=== PATIENT | male | born 1960 | race Caucasian/White ===

== ENCOUNTER 2021-01-26 04:05 | Emergency (ER) | payer MEDICARE, MEDICAID, SELFPAY ==
--- NOTE | ~2021-01-26 | CT_ITS ---
EXAMINATION: CT ABDOMEN AND PELVIS WITHOUT CONTRAST CLINICAL INFORMATION: Right-sided abdominal pain COMPARISON: 02/16/2020 TECHNIQUE: Multidetector volumetric imaging was performed from the superior aspect of the liver through the pubic symphysis. Sagittal and coronal reformatted images were obtained on the technologist's workstation. This CT examination was performed using dose optimization techniques as appropriate, variously including the following: *Automated exposure control *Adjustment of mA and/or kV according to patient size (this includes techniques or standardized protocols for targeted exams where dose is matched to indication/reason for exam; i.e. extremities or head) *Use of iterative reconstruction technique DLP: 1185 mGy-cm FINDINGS: LUNG BASES: The visualized lung bases are unremarkable. LIVER, GALLBLADDER, AND BILIARY TREE: Liver normal in size, contour and morphology. There is mild diffuse hepatic steatosis. No focal liver lesions. No intra or extrahepatic biliary. Gallbladder unremarkable. PANCREAS: Unremarkable. SPLEEN: Unremarkable. ADRENAL GLANDS: Unremarkable. KIDNEYS AND URETERS: The kidneys are normal in size, shape, and attenuation. No hydronephrosis, hydroureter, or calculi seen. No perinephric stranding. BLADDER: Unremarkable. GASTROINTESTINAL TRACT: The small and large bowel are unremarkable. The appendix is unremarkable. ABDOMINAL WALL: No significant hernia is appreciated. LYMPH NODES: Normal. VASCULAR: Aorta is atherosclerotic but normal caliber. PELVIC VISCERA: Unremarkable. OSSEOUS STRUCTURES: No acute or suspicious osseous abnormalities. Endplate ossified present throughout the thoracic and lumbar spine. Posterior decompression of the L3, L4. CT/CT abdomen pelvis wo con IMPRESSION: No acute findings within the abdomen or pelvis to explain the patient's symptomatology. Chronic findings as above.
--- NOTE | 2021-01-26 04:17 | ED.BACK ---
HPI - Back Pain/Injury General Chief Complaint: Back Pain/Injury Stated Complaint: Back pain Time Seen by Provider: 01/26/21 04:17 Source: patient Mode of arrival: ambulatory History of Present Illness HPI Narrative: 60-year-old male with chronic back pain, being seen by pain management presents with right mid back pain radiating into his right gluteus and right leg without bowel or bladder dysfunction or noted numbness/tingling/weakness. Patient denies any fever, chills, nausea, vomiting, diarrhea. Patient states that he gets back injections at pain management but he is unable to bear the pain currently. Related Data Previous Rx's Medication Instructions Recorded cyclobenzaprine 10 mg PO BEDTIME PRN #3 tab 01/26/21 ketorolac 10 mg PO Q6H PRN 5 Days #20 tab 01/26/21 Allergies Allergy/AdvReac Type Severity Reaction Status Date / Time Surgical Tape Allergy Unknown rash, Uncoded 01/26/21 04:31 itching Review of Systems Review of Systems: Pertinent positives and negatives as stated in HPI 10 point review of systems is otherwise negative. PMFSH Past Medical History Source: nursing notes reviewed Medical History Back pain Obesity Surgical History H/O shoulder surgery History of submandibular gland removal Previous back surgery Social History Social History Advance Directives: No Advance Directives Information Provided: No Physical Exam Vital Signs: Vital Signs: Last Vital Signs Temp 98.5 F 01/26/21 04:20 Pulse 68 01/26/21 04:20 Resp 20 01/26/21 04:20 BP 173/93 H 01/26/21 04:20 Pulse Ox 97 01/26/21 04:20 Body Mass Index 40.7 VITAL SIGNS: Reviewed. GENERAL: Well developed, well nourished, in no acute distress. HEAD: Normocephalic/atraumatic EYES: PERRLA, EOMI OROPHARYNX: no oral lesions noted, posterior pharynx clear NECK: Supple, no adenopathy LUNGS: Normal breath sounds. No adventitious sounds or accessory muscle use. SpO2<97> CARDIOVASCULAR: Regular rate and rhythm without noted murmurs, no JVD or lower extremity edema, femoral/popliteal/pedal pulses are symmetrical and palpable. ABDOMEN: Soft, non-tender, non-distended with bowel sounds. Exam limited by body habitus SKIN: Inspection of the skin reveals no rashes NEUROLOGIC: Alert and oriented x 4. Strength and sensation to light touch were grossly intact x 4. Course Course Course Narrative: This is a 60-year-old male with history and clinical presentation consistent with chronic back pain, low clinical suspicion for acute neurologic etiology but will rule out UTI/renal colic. Review of all investigations negative for acute findings that would better explain patient's presentation other than acute on chronic lower back pain. On re-evaluation after having given the patient's combination analgesics with Flexeril and lidocaine patch there is some improvement although patient remains somewhat dubious. He was reassured and given the overall results and instructed to follow-up with his primary care provider in an effort to expedite re-evaluation by the pain management provider. MDM - Back Pain/Injury Lab Data Result diagrams: 01/26/21 04:54 01/26/21 04:54 Labs: Lab Results 01/26/21 01/26/21 01/26/21 Range/Units 04:54 04:54 04:54 WBC 7.2 (4.8-10.8) X10*3/uL RBC 4.61 (4.60-5.80) X10*6/uL Hgb 15.7 (14.0-18.0) g/dl Hct 46.0 (42-52) % MCV 99.8 H (80-98) fL MCH 34.1 H (27.0-33.0) pg MCHC 34.1 (31.0-36.0) g/dl RDW 13.0 (11.0-16.0) % Plt Count 235 (160-400) X10*3/uL MPV 9.4 (9.4-12.4) fL Immature Gran % (Auto) 0.7 H (0.0-0.4) % Neut % (Auto) 54.6 (45-73) % Lymph % (Auto) 27.6 (20-40) % Mckenzie % (Auto) 12.2 H (2-11) % Eos % (Auto) 3.5 (0-4) % Baso % (Auto) 1.4 (0-2) % Lymph # (Auto) 2.0 (1.2-4.9) X10*3/uL Mckenzie # (Auto) 0.9 (0.1-1.2) X10*3/uL Eos # (Auto) 0.3 (0.0-0.4) X10*3/uL Baso # (Auto) 0.1 (0.0-0.2) X10*3/uL Abs Immat Gran (auto) 0.05 H (0.00-0.03) X10*3/uL Absolute Neuts (auto) 3.9 (2.0-8.3) X10*3/uL Absolute Nucleated RBC 0.000 (0.0-0.012) X10*3/uL Nucleated RBC % (auto) 0.0 (0.0-0.2) /100WBC PT 12.3 (10.8-13.0) SEC INR 1.0 (0.9-1.1) Sodium 142 (135-145) mmol/L Potassium 4.5 (3.3-5.1) mmol/L Chloride 107 (96-108) mmol/L Carbon Dioxide 29 (22-29) mmol/L Anion Gap 11 L (12-20) BUN 23 H (9-16) mg/dL Creatinine 0.76 (0.5-1.4) mg/dL Estim Creat Clear Calc 143.5 Estimated GFR > 60 Random Glucose 118 H (60-115) mg/dL Calcium 9.1 (8.4-10.2) mg/dL Total Bilirubin 0.5 (0.0-1.0) mg/dL AST 17 (5-37) U/L ALT 30 (0-40) U/L Alkaline Phosphatase 63 (39-117) U/L Total Protein 6.4 L (6.5-8.0) g/dL Albumin 4.2 (3.5-5.0) g/dL Urine Color Urine Appearance Urine pH (5.0-8.0) Ur Specific [place] (1.005-1.025) Urine Protein (NEG-TRACE) MG/DL Urine Glucose (UA) (NEG) MG/DL Urine Ketones (NEG) MG/DL Urine Blood (NEG) Urine Nitrite (NEG) Ur Leukocyte Esterase (NEG) Urine Opiates Screen (Not Detect) Ur Barbiturates Screen (Not Detect) Ur Phencyclidine Scrn (Not Detect) Ur Amphetamines Screen (Not Detect) U Benzodiazepines Scrn (Not Detect) Urine Cocaine Screen (Not Detect) U Marijuana (THC) Screen (Not Detect) 01/26/21 01/26/21 Range/Units 06:01 06:01 WBC (4.8-10.8) X10*3/uL RBC (4.60-5.80) X10*6/uL Hgb (14.0-18.0) g/dl Hct (42-52) % MCV (80-98) fL MCH (27.0-33.0) pg MCHC (31.0-36.0) g/dl RDW (11.0-16.0) % Plt Count (160-400) X10*3/uL MPV (9.4-12.4) fL Immature Gran % (Auto) (0.0-0.4) % Neut % (Auto) (45-73) % Lymph % (Auto) (20-40) % Mckenzie % (Auto) (2-11) % Eos % (Auto) (0-4) % Baso % (Auto) (0-2) % Lymph # (Auto) (1.2-4.9) X10*3/uL Mckenzie # (Auto) (0.1-1.2) X10*3/uL Eos # (Auto) (0.0-0.4) X10*3/uL Baso # (Auto) (0.0-0.2) X10*3/uL Abs Immat Gran (auto) (0.00-0.03) X10*3/uL Absolute Neuts (auto) (2.0-8.3) X10*3/uL Absolute Nucleated RBC (0.0-0.012) X10*3/uL Nucleated RBC % (auto) (0.0-0.2) /100WBC PT (10.8-13.0) SEC INR (0.9-1.1) Sodium (135-145) mmol/L Potassium (3.3-5.1) mmol/L Chloride (96-108) mmol/L Carbon Dioxide (22-29) mmol/L Anion Gap (12-20) BUN (9-16) mg/dL Creatinine (0.5-1.4) mg/dL Estim Creat Clear Calc Estimated GFR Random Glucose (60-115) mg/dL Calcium (8.4-10.2) mg/dL Total Bilirubin (0.0-1.0) mg/dL AST (5-37) U/L ALT (0-40) U/L Alkaline Phosphatase (39-117) U/L Total Protein (6.5-8.0) g/dL Albumin (3.5-5.0) g/dL Urine Color YELLOW Urine Appearance CLEAR Urine pH 6.0 (5.0-8.0) Ur Specific [place] >= 1.030 H (1.005-1.025) Urine Protein NEG (NEG-TRACE) MG/DL Urine Glucose (UA) NEG (NEG) MG/DL Urine Ketones NEG (NEG) MG/DL Urine Blood NEG (NEG) Urine Nitrite NEG (NEG) Ur Leukocyte Esterase NEG (NEG) Urine Opiates Screen Not Detected (Not Detect) Ur Barbiturates Screen Not Detected (Not Detect) Ur Phencyclidine Scrn Not Detected (Not Detect) Ur Amphetamines Screen Not Detected (Not Detect) U Benzodiazepines Scrn Not Detected (Not Detect) Urine Cocaine Screen Not Detected (Not Detect) U Marijuana (THC) Screen POSITIVE H (Not Detect) Discharge Plan Discharge Clinical Impression: Back pain, Muscle spasm Patient Disposition: Home, Self-Care Instructions: Muscle Spasm (ED), Back Pain (ED) Additional Instructions: 1. Tylenol 1000 mg, orally, every 6 hours as needed for pain control. Do not exceed 4000 mg within 24 hours. 2. Lidocaine patch, these are available [id number] and should be apply to the area of maximal pain as directed on the outside packaging. 3. Follow-up with your primary care provider today to set up an appointment for re-evaluation and further discussion on long-term management of your back pain. Return to the ER for any acute worsening of symptoms. Prescriptions: New ketorolac 10 mg tablet 10 mg PO Q6H PRN (Reason: pain) 5 Days Qty: 20 RF: 0 cyclobenzaprine 10 mg tablet 10 mg PO BEDTIME PRN (Reason: muscle spasm) Qty: 3 RF: 0 Referrals: Lucio Banda MD [Primary Care Provider] - 2 days (Re-evaluation after seen and evaluated in the emergency room for back pain. Workup for alternative etiologies other than acute on chronic pain were negative.)
[2021-01-26 04:20] VITALS: BP 173/93; PULSE 68; RESP 20; TEMP 36.9; O2SAT 97; BMI 40.7
[2021-01-26 04:59] LABS: Basophils Absolute Auto 0.1 X10*3/uL (0.0-0.2); Basophils Percent Auto 1.4 % (0-2); Eosinophils Absolute Auto 0.3 X10*3/uL (0.0-0.4); Eosinophils Percent Auto 3.5 % (0-4); Hemoglobin 15.7 g/dl (14.0-18.0); Imm Gran Abs Auto 0.05 X10*3/uL (0.00-0.03); Imm Gran Pct Auto 0.7 % (0.0-0.4); Lymphocytes Percent Auto 27.6 % (20-40); MANUAL DIFF FLAG NO; Mean Corpuscular HGB Conc 34.1 g/dl (31.0-36.0); Mean Corpuscular Hemoglobin 34.1 pg (27.0-33.0); Mean Corpuscular Volume 99.8 fL (80-98); Mean Platelet Volume 9.4 fL (9.4-12.4); Monocytes Absolute Auto 0.9 X10*3/uL (0.1-1.2); Monocytes Percent Auto 12.2 % (2-11); Neutrophils Absolute Auto 3.9 X10*3/uL (2.0-8.3); Neutrophils Percent Auto 54.6 % (45-73); Platelet Count 235 X10*3/uL (160-400); Red Blood Count 4.61 X10*6/uL (4.60-5.80); White Blood Count 7.2 X10*3/uL (4.8-10.8)
[2021-01-26] MEDS: Lidocaine 4 % Patch ADH..PATCH 1 PATCH TRANSDERMA (05:01)
[2021-01-26] MEDS: Acetaminophen 325 MG TABLET 975 MG PO (05:01)
[2021-01-26] MEDS: Ketorolac Tromethamine 15 MG/ML VIAL IVPUSH (05:01)
[2021-01-26] MEDS: Cyclobenzaprine HCl 10 MG TABLET PO (05:01)
[2021-01-26 05:06] LABS: Prothrombin Time 12.3 SEC (10.8-13.0)
[2021-01-26 05:29] LABS: Alanine Aminotransferase 30 U/L (0-40); Albumin Level 4.2 g/dL (3.5-5.0); Alkaline Phosphatase 63 U/L (39-117); Anion Gap 11 (12-20); Aspartate Amino Transferase 17 U/L (5-37); Bilirubin Total 0.5 mg/dL (0.0-1.0); Blood Urea Nitrogen 23 mg/dL (9-16); Calcium 9.1 mg/dL (8.4-10.2); Carbon Dioxide 29 mmol/L (22-29); Chloride 107 mmol/L (96-108); Creatinine Clr Calc Pharmacy 143.5; Estimated Glomerular Filt Rate > 60; Glucose Random 118 mg/dL (60-115); Potassium 4.5 mmol/L (3.3-5.1); Sodium 142 mmol/L (135-145); Total Protein 6.4 g/dL (6.5-8.0)
[2021-01-26 06:09] LABS: Glucose Urine UA NEG (NEG); Leukocyte Esterase Urine NEG (NEG); Nitrite Urine NEG (NEG); Specific Gravity - Urine >= 1.030 (1.005-1.025); Urine Blood NEG (NEG); Urine Ketones NEG (NEG); Urine Protein NEG (NEG-TRACE)
[2021-01-26 06:10] LABS: Appearance Urine CLEAR; Color Urine YELLOW; UACC Culture Trigger NO
[2021-01-26 06:26] LABS: Amphetamine Screen Urine Not Detected (Not Detect); Barbiturates, Urine Not Detected (Not Detect); Benzodiazepines Screen Urine Not Detected (Not Detect); Cannabinoid Screen Urine POSITIVE (Not Detect); Cocaine Screen Urine Not Detected (Not Detect); Opiate Screen Urine Not Detected (Not Detect); Phencyclidine Screen Urine Not Detected (Not Detect)
== END 2021-01-26 08:05 | disposition home or self-care (01) ==
PROVIDERS: Emergency Provider Student in an Organized Health Care Education/Training Program; PCP Internal Medicine
DX: M62.838 Other muscle spasm (principal); G89.29 Other chronic pain; M54.9 Dorsalgia, unspecified
CPT/HCPCS: 36415; 74176; 80053; 80307; 81003; 85025; 85610; 96374; 99283; 99284; J1885

== ENCOUNTER 2021-12-29 07:51 | Emergency (ER) | payer MEDICARE, MEDICAID, SELFPAY ==
--- NOTE | ~2021-12-29 | XR_ITS ---
EXAMINATION: XR ABDOMEN KUB CLINICAL INDICATION: Epigastric pain COMPARISON: Previous CT of the abdomen and pelvis January 2021 TECHNIQUE: AP view of the abdomen. FINDINGS: The bowel gas pattern is normal. There is no evidence of free air. There are small radiopaque densities suggestive of foreign bodies. When compared with previous CT project over the soft tissues of the back. There are degenerative changes of the spine and hip joints. XR/XR KUB IMPRESSION: No acute findings.
--- NOTE | ~2021-12-29 | CT_ITS ---
EXAMINATION: CT ABDOMEN AND PELVIS WITHOUT CONTRAST CLINICAL INFORMATION: Abdominal pain. COMPARISON: CT scan of the abdomen and pelvis dated 01/26/2021. TECHNIQUE: Multidetector volumetric imaging was performed from the superior aspect of the liver through the pubic symphysis. Sagittal and coronal reformatted images were obtained on the technologist's workstation. Plaque of intravenous and oral contrast limits visceral evaluation. This CT examination was performed using dose optimization techniques as appropriate, variously including the following: *Automated exposure control *Adjustment of mA and/or kV according to patient size (this includes techniques or standardized protocols for targeted exams where dose is matched to indication/reason for exam; i.e. extremities or head) *Use of iterative reconstruction technique DLP: 1016 mGy-cm FINDINGS: LUNG BASES: The visualized lung bases are unremarkable. LIVER, GALLBLADDER, AND BILIARY TREE: Unremarkable. PANCREAS: Unremarkable. SPLEEN: Unremarkable. ADRENAL GLANDS: Unremarkable. KIDNEYS AND URETERS: The kidneys are normal in size, shape, and attenuation. No hydronephrosis, hydroureter, or calculi seen. No perinephric stranding. BLADDER: Unremarkable. GASTROINTESTINAL TRACT: The stomach, small bowel and appendix are unremarkable. The colon and rectum are unremarkable. ABDOMINAL WALL: Small fat-containing right inguinal hernia. LYMPH NODES: No lymphadenopathy. VASCULAR: Unremarkable. PELVIC VISCERA: Small coarse calcification centrally in the right prostate without significant enlargement. OSSEOUS STRUCTURES: Mild to moderate multilevel degenerative changes in the thoracolumbar spine with degenerative disc disease most pronounced at L1 to and L3-L4 multilevel marginal osteophytes. No suspicious abnormality. CT/CT abdomen pelvis wo con IMPRESSION: 1. No acute intra-abdominal/pelvic abnormality to explain the patient's pain. 2. Several incidental findings detailed above. Fleischner guidelines were followed.
[2021-12-29 08:09] VITALS: BP 179/99; PULSE 83; RESP 20; TEMP 36.9; O2SAT 93; BMI 39.3
[2021-12-29 08:27] VITALS: BP 186/101; PULSE 75; RESP 14; TEMP 37.1; O2SAT 96
--- NOTE | 2021-12-29 08:32 | ED.GENADULT ---
HPI - General Adult General Chief complaint: Abdominal Pain Stated complaint: Abd pain Time Seen by Provider: 12/29/21 08:32 Source: patient Mode of arrival: ambulatory Limitations: no limitations History of Present Illness HPI narrative: Patient is a 61 year old male presenting to the emergency department today with diffuse abdominal pain. Patient states that for the last 3 days he has had diffuse abdominal pain and nausea. Patient states that it has been a little over a day since his last bowel movement. Patient denies ever having any abdominal procedures. Patient states that he has been nauseous but has not vomited. Patient describes the pain as constant and worse with laying down. Patient denies any dizziness, lightheadedness, vomiting, fever, chills, blurry vision, double vision, loss of vision, chest pain, difficulty breathing, shortness of breath, back pain, night sweats, pain with urination, increased urinary frequency, increased urinary urgency, blood in his urine or stool, syncope or a near syncopal episode, recent trauma or falls, bowel incontinence, bladder incontinence, bowel retention, bladder retention, or any other complaints at this time. Onset (ago): day(s) (3) Location: abdomen Radiation: non-radiation Severity: mild Severity scale (1-10): 3 Quality: constant Pain Consistency: constant Relieving factors: none Exacerbating factors: none Associated symptoms: nausea/vomiting Treatments prior to arrival: none Related Data Previous Rx's Medication Instructions Recorded cyclobenzaprine 10 mg tablet 10 mg PO BEDTIME PRN #3 tab 01/26/21 ketorolac 10 mg tablet 10 mg PO Q6H PRN 5 Days #20 tab 01/26/21 doxycycline hyclate 100 mg tablet 100 mg PO BID #14 tab 08/10/21 ketorolac 10 mg tablet 10 mg PO Q6H 5 Days #20 tab 12/29/21 ketorolac 10 mg tablet 10 mg PO Q6H PRN 5 Days tab 12/29/21 lorazepam 2 mg tablet (Ativan) 2 mg PO DAILY PRN #3 tab 12/29/21 lorazepam 2 mg tablet (Ativan) 2 mg PO DAILY PRN #3 tab 12/29/21 ondansetron 4 mg disintegrating 4 mg PO Q8H 3 Days #9 tab 12/29/21 tablet Allergies Allergy/AdvReac Type Severity Reaction Status Date / Time Surgical Tape Allergy Unknown rash, Uncoded 12/29/21 08:12 itching Review of Systems Constitutional: Constitutional: Reports no additional constitutional complaints, Denies chills, Denies fever(s) and Denies night sweats Eyes: Eyes: Reports no additional eye complaints, Denies blurry vision, Denies change in vision, Denies diplopia, Denies eye discharge, Denies loss of vision and Denies eye pain ENT: Denies dizziness Cardiovascular: Cardiovascular: Reports no additional cardiovascular complaints, Denies chest pain, Denies lightheadedness, Denies Loss of Consciousness and Denies dyspnea Respiratory: Respiratory: Reports no additional respiratory complaints and Denies dyspnea Gastrointestinal: Gastrointestinal: Reports no additional gastrointestinal complaints, Reports abdominal pain, Denies melena, Denies hematochezia, Denies change in bowel habits, Denies change in stool character and Reports nausea Genitourinary: Genitourinary: Reports no additional male genitourinary complaints, Denies hematuria, Denies oliguria, Denies difficulty urinating, Denies dysuria, Denies urinary frequency, Denies urinary hesitancy, Denies urinary incontinence and Denies urinary urgency Musculoskeletal: Musculoskeletal: Reports no additional musculoskeletal complaints, Denies numbness and Denies tingling Neurologic: Denies dizziness, Denies loss of vision, Denies numbness and Denies tingling Psychiatric: Psychiatric: Reports no additional psychiatric complaints Endocrine: Endocrine: Reports no additional endocrine complaints Hematologic/Lymphatic: Hematologic/Lymphatic: Reports no additional hematologic/lymphatic complaints Allergic/Immunologic: Allergic/Immunologic: Reports no additional allergic/immunologic complaints [facility] Past Medical History Attestation statement: The following information was validated with the patient. Source: old records reviewed Medical History Back pain Obesity Surgical History H/O shoulder surgery History of submandibular gland removal Previous back surgery Social History Social History Alcohol intake: never Patient Tobacco Use Status: Current everyday Tobacco user Smoked in Last 30 Days: Yes Advance Directives: No Physical Exam ED Vital Signs: Vital Signs - 24 hr 12/29/21 08:09 12/29/21 08:27 Temperature 98.4 F 98.8 F Pulse Rate 83 75 Respiratory Rate 20 14 Blood Pressure 179/99 H 186/101 H Pulse Oximetry 93 96 BMI result Body Mass Index 39.3 Const General: cooperative, no acute distress, alert and awake Nutritional Appearance: well nourished Orientation/consciousness: patient oriented x3 Limitations: no limitations HENMT Head: Yes normal to inspection and Yes atraumatic Ears: hearing grossly normal bilaterally and external ears normal General nose exam: Normal external nose present, no nasal discharge noted and no epistaxis Face and sinus: Yes normal facial exam, No abrasion and No laceration Mouth: Normal oral and palatal mucosa present, no drooling and no muffled voice Eyes General: appearance normal, both eyes and all related structures Periorbital: periorbital findings normal Eyelids: Yes eyelids normal Conjunctivae: conjunctivae normal Pupils: Equal, round and reactive pupils present EOM: EOMs intact bilaterally Neck Neck: Yes normal visual inspection, Yes full ROM and Yes no lymphadenopathy Chest Chest palpation & inspection: normal inspection of the chest Resp Effort & Inspection: normal respiratory effort and able to speak in complete sentences Auscultation: clear to auscultation bilaterally Cardio Rate: regular rate Rhythm: regular rhythm GI Inspection: Yes normal to inspection Palpation (GI): Soft to palpation, not firm, nontender, no guarding and not rigid Neuro General: patient oriented x3 and moves all extremities Cranial nerves: Yes Equal, round and reactive pupils present Cognition (Neuro): normal cognition Motor exam (neuro): 5/5 motor strength present throughout Sensory Exam: Normal double simultaneous stimulation for sensation Coordination: [id number] test normal Extrem General: Yes normal to inspection, Yes full ROM and Yes capillary refill normal Psych Appearance: grossly normal Mental Status: mental status grossly normal Affect: normal affect Attitude: cooperative Thought process: Normal thought process present Thought content: Normal thought content present Insight: Good insight present (Psych) Medical Decision Making MDM Narrative Medical decision making narrative: Patient is a 61 year old male presenting to the emergency department today with abdominal pain. Patient's physical exam was unremarkable, including a normal GI exam. Patient's blood work showed a slightly elevated bilirubin and ALT however, I was not concerned of biliary disease given a normal alk phos and physical exam. Patient's EKG was unremarkable. Patient's KUB x-ray showed no acute process. Patient's abdominal CT showed no acute process. I explained my physical exam findings as well as all test results to the patient. I answered all questions asked by the patient. Patient received ketoralac, ativan, zofran, and protonix which he stated helped his symptoms significantly. I stressed the importance of the patient taking his medication as prescribed. I stressed the importance of the patient following up with his primary care provider. I stressed the importance of the patient returning to the emergency department immediately if his symptoms were to worsen or if he were to develop any dizziness, shortness of breath, difficulty breathing, chest pain, blurry vision, loss of vision, nausea, vomiting, abdominal pain, fever, chills, back pain, or any other complaints. Patient [and the patient's] verbalized agreement and understanding with this treatment plan and discharge. Differential Diagnosis Differential Diagnosis: abdominal pain, viral illness Medical Records Medical records reviewed: Yes I reviewed the patient's medical records. Lab Data Lab results reviewed: Yes I reviewed the patient's lab results. Result diagrams: 12/29/21 08:49 12/29/21 08:49 Labs: Lab Results 12/29/21 12/29/21 12/29/21 Range/Units 08:49 08:49 08:49 WBC 9.7 (4.8-10.8) X10*3/uL RBC 4.90 (4.60-5.80) X10*6/uL Hgb 16.5 (14.0-18.0) g/dl Hct 48.8 (42.0-52.0) % MCV 99.6 H (80.0-98.0) fL MCH 33.7 H (27.0-33.0) pg MCHC 33.8 (31.0-36.0) g/dl RDW 13.2 (11.0-16.0) % Plt Count 215 (160-400) X10*3/uL MPV 9.6 (9.4-12.4) fL Immature Gran % (Auto) 0.5 H (0.0-0.4) % Neut % (Auto) 69.5 (45-73) % Lymph % (Auto) 16.3 L (20-40) % [place] % (Auto) 11.3 H (2-11) % Eos % (Auto) 1.6 (0-4) % Baso % (Auto) 0.8 (0-2) % Lymph # (Auto) 1.6 (1.2-4.9) X10*3/uL [place] # (Auto) 1.1 (0.1-1.2) X10*3/uL Eos # (Auto) 0.2 (0.0-0.4) X10*3/uL Baso # (Auto) 0.1 (0.0-0.2) X10*3/uL Abs Immat Gran (auto) 0.05 H (0.00-0.03) X10*3/uL Absolute Neuts (auto) 6.7 (2.0-8.3) x10*3/uL Absolute Nucleated RBC 0.000 (0.0-0.012) X10*3/uL Nucleated RBC % (auto) 0.0 (0.0-0.2) /100WBC Sodium 143 (135-145) mmol/L Potassium 4.2 (3.3-5.1) mmol/L Chloride 103 (96-108) mmol/L Carbon Dioxide 30 H (22-29) mmol/L Anion Gap 14 (12-20) BUN 17 H (9-16) mg/dL Creatinine 0.85 (0.5-1.4) mg/dL Estim Creat Clear Calc 128.0 Estimated GFR > 60 Random Glucose 147 H (60-115) mg/dL Calcium 10.1 D (8.4-10.2) mg/dL Magnesium 2.1 (1.6-2.6) mg/dL Total Bilirubin 1.5 H (0.0-1.0) mg/dL AST 21 (5-37) U/L ALT 50 H (0-40) U/L Alkaline Phosphatase 54 (39-117) U/L Troponin I High Sens < 3.5 (<3.5-35.0) ng/L B-Natriuretic Peptide 31 (<100) pg/mL Total Protein 6.8 (6.5-8.0) g/dL Albumin 4.4 (3.5-5.0) g/dL Lipase 23 (8-78) U/L Imaging Data Abdominal x-ray: Attestation: I personally reviewed and interpreted this imaging study as follows: My impression: No acute process. Radiologist's impression: EXAMINATION: XR ABDOMEN KUB CLINICAL INDICATION: Epigastric pain? COMPARISON: Previous CT of the abdomen and pelvis January 2021? TECHNIQUE: AP view of the abdomen. FINDINGS: The bowel gas pattern is normal. There is no evidence of free air. There are small radiopaque densities suggestive of? foreign bodies. When compared with previous CT project over the soft tissues of the back. There are degenerative changes of the spine and hip joints. XR/XR KUB IMPRESSION: No acute findings. ? Dictated By: Zonia Sal MD Signed By: Electronically signed by Zonia Sal MD 12/29/[address] scan - abdomen: Attestation: I personally reviewed and interpreted this imaging study as follows: My impression: No acute process. Radiologist's impression: EXAMINATION: CT ABDOMEN AND PELVIS WITHOUT CONTRAST? CLINICAL INFORMATION: Abdominal pain.? COMPARISON: CT scan of the abdomen and pelvis dated 01/26/2021.? TECHNIQUE: Multidetector volumetric imaging was performed from the superior aspect of the liver through the pubic symphysis. Sagittal and coronal reformatted images were obtained on the technologist's workstation. Plaque of intravenous and oral contrast limits visceral evaluation. This CT examination was performed using dose optimization techniques as appropriate, variously including the following: *Automated exposure control *Adjustment of mA and/or kV according to patient size (this includes techniques or standardized protocols for targeted exams where dose is matched to indication/reason for exam; i.e. extremities or head) *Use of iterative reconstruction technique DLP: 1016 mGy-cm FINDINGS: LUNG BASES: The visualized lung bases are unremarkable.? LIVER, GALLBLADDER, AND BILIARY TREE: Unremarkable. PANCREAS: Unremarkable.? SPLEEN: Unremarkable.? ADRENAL GLANDS: Unremarkable.? KIDNEYS AND URETERS: The kidneys are normal in size, shape, and attenuation. No hydronephrosis, hydroureter, or calculi seen. No perinephric stranding. ? BLADDER: Unremarkable.? GASTROINTESTINAL TRACT: The stomach, small bowel and appendix are unremarkable. The colon and rectum are unremarkable.? ABDOMINAL WALL: Small fat-containing right inguinal hernia.? LYMPH NODES: No lymphadenopathy. VASCULAR: Unremarkable. PELVIC VISCERA: Small coarse calcification centrally in the right prostate without significant enlargement.? OSSEOUS STRUCTURES: Mild to moderate multilevel degenerative changes in the thoracolumbar spine with degenerative disc disease most pronounced at L1 to and L3-L4 multilevel marginal osteophytes. No suspicious abnormality.? CT/CT abdomen pelvis wo con IMPRESSION: 1. No acute intra-abdominal/pelvic abnormality to explain the patient's pain. 2. Several incidental findings detailed above.? ? Fleischner guidelines were followed. Dictated By: Chris Peralta MD Signed By: Electronically signed by Chris Peralta MD 12/29/21 1111 ECG Data Attestation: I personally reviewed and interpreted this ECG as follows: Prior ECG tracings: not available for review Interpretation: Vent. Rate: 070 BPM ? ? Atrial Rate: 070 BPM P-R Int: 168 ms? QRS Dur: 080 ms QT Int: 384 ms ? ? ? P-R-T Axes: 049 031 051 degrees QTc Int: 414 ms ? Normal sinus rhythm Normal ECG No previous ECGs available DD/ [id number] Discharge Plan Discharge Clinical Impression: Gastroenteritis Patient Disposition: Home, Self-Care Instructions: Gastroenteritis (DC) Additional Instructions: Follow up with your primary care provider. Return to the emergency department immediately if your symptoms worsen or if you develop any dizziness, shortness of breath, difficulty breathing, chest pain, blurry vision, loss of vision, nausea, vomiting, abdominal pain, fever, chills, back pain, or any other complaints. Prescriptions: New ondansetron 4 mg tablet,disintegrating 4 mg PO Q8H 3 Days Qty: 9 0RF ketorolac 10 mg tablet 10 mg PO Q6H PRN (Reason: pain) 5 Days 0RF lorazepam [Ativan] 2 mg tablet 2 mg PO DAILY PRN (Reason: sleep) Qty: 3 0RF ketorolac 10 mg tablet 10 mg PO Q6H 5 Days Qty: 20 0RF lorazepam [Ativan] 2 mg tablet 2 mg PO DAILY PRN (Reason: sleep) Qty: 3 0RF No Action ketorolac 10 mg tablet 10 mg PO Q6H PRN (Reason: pain) 5 Days Qty: 20 0RF Rx Instructions: Patient received Toradol in the emergency room. cyclobenzaprine 10 mg tablet 10 mg PO BEDTIME PRN (Reason: muscle spasm) Qty: 3 0RF doxycycline hyclate 100 mg tablet 100 mg PO BID Qty: 14 0RF Referrals: Lucio Bnada MD [Primary Care Provider] - Interventions: ED Discharge Assessment Last Done: 12/29/21 11:54 Discharge Date/Time: 12/29/21 11:56 Print Language: Cam[place]onian
--- NOTE | 2021-12-29 08:36 | ECG_ITS ---
Test Reason : abd pain Blood Pressure : / mmHG Vent. Rate : 070 BPM Atrial Rate : 070 BPM P-R Int : 168 ms QRS Dur : 080 ms QT Int : 384 ms P-R-T Axes : 049 031 051 degrees QTc Int : 414 ms Normal sinus rhythm Normal ECG No previous ECGs available Referred By: Claudia Rivera Electronically Signed By:DIANN AHN
[2021-12-29 08:54] LABS: MANUAL DIFF FLAG NO
[2021-12-29 08:55] LABS: Basophils Absolute Auto 0.1 X10*3/uL (0.0-0.2); Basophils Percent Auto 0.8 % (0-2); Eosinophils Absolute Auto 0.2 X10*3/uL (0.0-0.4); Eosinophils Percent Auto 1.6 % (0-4); Hematocrit 48.8 % (42.0-52.0); Hemoglobin 16.5 g/dl (14.0-18.0); Imm Gran Abs Auto 0.05 X10*3/uL (0.00-0.03); Imm Gran Pct Auto 0.5 % (0.0-0.4); Lymphocytes Absolute Auto 1.6 X10*3/uL (1.2-4.9); Lymphocytes Percent Auto 16.3 % (20-40); Mean Corpuscular HGB Conc 33.8 g/dl (31.0-36.0); Mean Corpuscular Hemoglobin 33.7 pg (27.0-33.0); Mean Corpuscular Volume 99.6 fL (80.0-98.0); Mean Platelet Volume 9.6 fL (9.4-12.4); Monocytes Absolute Auto 1.1 X10*3/uL (0.1-1.2); Monocytes Percent Auto 11.3 % (2-11); Neutrophils Absolute Auto 6.7 x10*3/uL (2.0-8.3); Neutrophils Percent Auto 69.5 % (45-73); Platelet Count 215 X10*3/uL (160-400); Red Cell Distribution Width 13.2 % (11.0-16.0); White Blood Count 9.7 X10*3/uL (4.8-10.8)
[2021-12-29] MEDS: Pantoprazole Sodium 40 MG/10 ML VIAL IVPUSH (08:58)
[2021-12-29] MEDS: Magnesium Hydrox/Alum Hydrox 30 ML ORAL.SUSP PO (08:58)
[2021-12-29] MEDS: 0.9 % Sodium Chloride 1,000 ML 999 ML IVCONT (08:58)
[2021-12-29] MEDS: ondansetron HCL 4 MG/2 ML VIAL IVPUSH (08:58)
--- NOTE | 2021-12-29 09:06 | PC.NURSE ---
pt did not take BP med this morning
[2021-12-29 09:16] LABS: Alanine Aminotransferase 50 U/L (0-40); Albumin Level 4.4 g/dL (3.5-5.0); Alkaline Phosphatase 54 U/L (39-117); Anion Gap 14 (12-20); Aspartate Amino Transferase 21 U/L (5-37); B Type Natriuretic Peptide 31 pg/mL (<100); Bilirubin Total 1.5 mg/dL (0.0-1.0); Blood Urea Nitrogen 17 mg/dL (9-16); Calcium 10.1 mg/dL (8.4-10.2); Carbon Dioxide 30 mmol/L (22-29); Chloride 103 mmol/L (96-108); Estimated Glomerular Filt Rate > 60; Glucose Random 147 mg/dL (60-115); Lipase 23 U/L (8-78); Magnesium 2.1 mg/dL (1.6-2.6); Potassium 4.2 mmol/L (3.3-5.1); Sodium 143 mmol/L (135-145); Total Protein 6.8 g/dL (6.5-8.0); Troponin-I High Sensitivity < 3.5 ng/L (<3.5-35.0)
[2021-12-29] MEDS: Ketorolac Tromethamine 30 MG/ML VIAL IVPUSH (11:11)
[2021-12-29] MEDS: LORazepam 2 MG/ML VIAL IVPUSH (11:12)
== END 2021-12-29 11:56 | disposition home or self-care (01) ==
PROVIDERS: Physician Assistant Medical; Emergency Provider Emergency Medicine Emergency Medical Services; PCP Internal Medicine
DX: K52.9 Noninfective gastroenteritis and colitis, unspecified (principal)
CPT/HCPCS: 36415; 74018; 74176; 80053; 83690; 83735; 83880; 84484; 85025; 93005; 96361; 96374; 96375; 99284; J1885; J2060; J2405

== ENCOUNTER 2021-12-31 07:56 | Emergency (ER) | payer MEDICARE, MEDICAID, SELFPAY ==
[2021-12-31 08:24] VITALS: BP 193/83; PULSE 75; RESP 16; TEMP 36.1; O2SAT 97; BMI 38.6
--- NOTE | 2021-12-31 09:53 | ED.GENADULT ---
HPI - General Adult General Chief complaint: Skin/Abscess/Foreign Body Stated complaint: Rash Time Seen by Provider: 12/31/21 08:14 Source: patient Mode of arrival: ambulatory Limitations: no limitations History of Present Illness HPI narrative: 61-year-old male history of hypertension presents to ED for left flank abdominal rash that he noticed this morning. He states rash is painful. Patient states yesterday he was seen in the ER for abdominal pain on that side burning sensation had normal evaluation. Patient denies any rash on the face, eye pain, blurry vision, or pain in the ear. Related Data Previous Rx's Medication Instructions Recorded cyclobenzaprine 10 mg tablet 10 mg PO BEDTIME PRN #3 tab 01/26/21 ketorolac 10 mg tablet 10 mg PO Q6H PRN 5 Days #20 tab 01/26/21 doxycycline hyclate 100 mg tablet 100 mg PO BID #14 tab 08/10/21 ketorolac 10 mg tablet 10 mg PO Q6H 5 Days #20 tab 12/29/21 ketorolac 10 mg tablet 10 mg PO Q6H PRN 5 Days tab 12/29/21 lorazepam 2 mg tablet (Ativan) 2 mg PO DAILY PRN #3 tab 12/29/21 lorazepam 2 mg tablet (Ativan) 2 mg PO DAILY PRN #3 tab 12/29/21 ondansetron 4 mg disintegrating 4 mg PO Q8H 3 Days #9 tab 12/29/21 tablet valacyclovir 1 gram tablet 1,000 mg PO TID 7 Days #21 tab 12/31/21 Allergies Allergy/AdvReac Type Severity Reaction Status Date / Time Surgical Tape Allergy Unknown rash, Uncoded 12/29/21 08:12 itching Review of Systems Review of Systems: Left flank left abdominal rash Yes all other systems are reviewed and are negative PMFSH Past Medical History Medical History Back pain Obesity Surgical History H/O shoulder surgery History of submandibular gland removal Previous back surgery Social History Social History Alcohol intake: never Patient Tobacco Use Status: Current everyday Tobacco user Advance Directives: No Advance Directives Information Provided: No Physical Exam ED Vital Signs: Vital Signs - 24 hr 12/31/21 08:24 Temperature 97.0 F Pulse Rate 75 Respiratory Rate 16 Blood Pressure 193/83 H Pulse Oximetry 97 BMI result Body Mass Index 38.6 Const General: cooperative, healthy appearing, comfortable, no acute distress, well developed, alert, awake and Physically active Orientation/consciousness: patient oriented x3 HENMT Other: Negative for any vesicular lesions in ears. Negative for any vesicular lesion on nose or face. Head: Yes normal to inspection, Yes No palpable skull fracture present, Yes normocephalic, Yes atraumatic and No abrasion Ears: hearing grossly normal bilaterally, external ears normal, TM's normal bilaterally, TM normal on the right, EAC's normal, mastoids normal and no periauricular adenopathy Eyes General: appearance normal, both eyes and all related structures Neck Neck: Yes normal visual inspection, Yes full ROM, Yes no lymphadenopathy, Yes no meningeal signs, Yes trachea midline, Yes supple, No anterior neck swelling and No tender Chest Chest palpation & inspection: normal inspection of the chest and normal palpation of entire chest wall Resp Effort & Inspection: normal respiratory effort and able to speak in complete sentences Auscultation: clear to auscultation bilaterally Cardio Jugular venous distension: no JVD Heart sounds: S1 normal heart sound present and S2 normal heart sound present GI Inspection: Yes normal to inspection and No abdominal wall ecchymosis Palpation (GI): Soft to palpation, not firm, nontender, no guarding and not rigid Abdomen image: 1. Positive for vesicular lesions. Indicate shingles Back/Spine/Pelvis Back/spine/pelvis image: 1. Left flank positive for vesicular lesions. Shingles Skin Other: Shingles. Vesicular lesion. General skin exam: no rashes or lesions noted and elasticity normal Neuro Other: Negative any neuro deficits. NIH score 0 General: patient oriented x3, gait normal, no meningeal signs and CN's II-XI intact bilaterally Cranial nerves: Yes CN's II-XII intact bilaterally Extrem General: Yes normal to inspection and Yes full ROM Psych Appearance: grossly normal, well kempt and not disheveled Course Course Course Narrative: History physical exam indicate shingles. Reevaluation(s) Reevaluation #1: Patient will be discharged with antiviral medication. Patient's blood pressure elevated due to patient not taking his lisinopril this morning and yesterday. Also pain/discomfort from shingles causing elevated blood pressure. Not suspecting any cardiac neuro/stroke, or kidney function from elevated blood pressure. Patient is safe for discharge. Patient informed to take his high blood pressure medications. No indication for labs a head CT scan. Patient denies any eye complaints and does not have any shingles on the nose to suspect any herpes shingles in the eye. Time: 21:59 Medical Decision Making MDM Narrative Medical decision making narrative: Shingles Discharge Plan Discharge Clinical Impression: Shingles Patient Disposition: Home, Self-Care Instructions: Shingles (ED) Additional Instructions: You have shingles. You will be discharged with antiviral medication. Will be discharged with pain medications. Return to the ED immediately if he have rash on the face, eye pain, blurry vision, fever, chills, worsening rash, or any other concerning symptoms. Please follow-up with your primary care provider. Prescriptions: New valacyclovir 1 gram tablet 1,000 mg PO TID 7 Days Qty: 21 0RF No Action ketorolac 10 mg tablet 10 mg PO Q6H PRN (Reason: pain) 5 Days Qty: 20 0RF Rx Instructions: Patient received Toradol in the emergency room. cyclobenzaprine 10 mg tablet 10 mg PO BEDTIME PRN (Reason: muscle spasm) Qty: 3 0RF ondansetron 4 mg tablet,disintegrating 4 mg PO Q8H 3 Days Qty: 9 0RF ketorolac 10 mg tablet 10 mg PO Q6H PRN (Reason: pain) 5 Days 0RF lorazepam [Ativan] 2 mg tablet 2 mg PO DAILY PRN (Reason: sleep) Qty: 3 0RF ketorolac 10 mg tablet 10 mg PO Q6H 5 Days Qty: 20 0RF lorazepam [Ativan] 2 mg tablet 2 mg PO DAILY PRN (Reason: sleep) Qty: 3 0RF doxycycline hyclate 100 mg tablet 100 mg PO BID Qty: 14 0RF Stand Alone Forms: Work/School Release Discharge Date/Time: 12/31/21 10:51 Print Language: Spanish
== END 2021-12-31 10:51 | disposition home or self-care (01) ==
PROVIDERS: Emergency Provider Emergency Medicine; PCP Internal Medicine
DX: B02.9 Zoster without complications (principal); I10 Essential (primary) hypertension
CPT/HCPCS: 99281

== ENCOUNTER 2023-09-03 08:35 | Emergency (ER) | payer MEDICARE, MEDICAID, SELFPAY ==
--- NOTE | ~2023-09-03 | XR_ITS ---
EXAMINATION: XR ANKLE, LEFT CLINICAL INFORMATION: Left ankle COMPARISON: None available. TECHNIQUE: AP, lateral, and mortise views of the left ankle. FINDINGS: Base of the fifth metatarsal intact. Mortise intact. No fracture, dislocation, or destructive process. There is prominent spurring off the posterior calcaneus. XR/XR ankle LT 2V IMPRESSION: No acute findings.
--- NOTE | ~2023-09-03 | XR_ITS ---
EXAMINATION: XR FOOT, LEFT CLINICAL INFORMATION: Pain after direct trauma COMPARISON: None available. TECHNIQUE: 2 views of the left foot. FINDINGS: No fracture or destructive process. Alignment preserved. Lateral view obtained on the ankle series. XR/XR foot LT min 3V IMPRESSION: Unremarkable study.
[2023-09-03 08:46] VITALS: BP 178/100; PULSE 76; RESP 18; TEMP 36.6; O2SAT 96; BMI 37.7
--- NOTE | 2023-09-03 09:46 | ED_ITS ---
HPI - Extremity Injury (Lower) General Chief Complaint: Extremity Injury, Lower Stated Complaint: ? L Foot Fracture Injury 09/03/23 Time Seen by Provider: 09/03/23 09:40 Source: patient Mode of arrival: ambulatory Limitations: no limitations History of Present Illness HPI Narrative: Patient is a 63-year-old male presenting to the emergency department with complaint of left foot pain since overnight. Patient states that he got out of bed to go to the bathroom and forgot about his portable heater and accidentally kicked it. Complains of severe pain. Did not take any [id number] Tylenol or ibuprofen prior to arrival. Patient applied his own Campos wrap at home and has been able to ambulate with a cane. Denies any numbness or tingling. Denies any radiation of pain. MD complaint: ankle injury and foot injury Onset (ago): hour(s) Type of Injury: blunt Place: home Severity: severe Exacerbating factors: movement and palpation Context: direct blow Other symptoms: none Treatments prior to arrival: bandage Related Data Previous Rx's Medication Instructions Recorded cyclobenzaprine 10 mg tablet 10 mg PO BEDTIME PRN muscle spasm 01/26/21 #3 tabs ketorolac 10 mg tablet 10 mg PO Q6H PRN pain 5 days #20 01/26/21 tabs doxycycline hyclate 100 mg tablet 100 mg PO BID #14 tabs 08/10/21 ketorolac 10 mg tablet 10 mg PO Q6H 5 days #20 tabs 12/29/21 ketorolac 10 mg tablet 10 mg PO Q6H PRN pain 5 days 12/29/21 lorazepam 2 mg tablet (Ativan) 2 mg PO DAILY PRN sleep #3 tabs 12/29/21 lorazepam 2 mg tablet (Ativan) 2 mg PO DAILY PRN sleep #3 tabs 12/29/21 ondansetron 4 mg disintegrating 4 mg PO Q8H 3 days #9 tabs 12/29/21 tablet valacyclovir 1 gram tablet 1,000 mg PO TID 7 days #21 tabs 12/31/21 ibuprofen 600 mg tablet 600 mg PO Q6H PRN pain #20 tabs 09/03/23 lidocaine 5 % topical patch 1 patch topical DAILY #15 ea 09/03/23 Allergies Allergy/AdvReac Type Severity Reaction Status Date / Time Surgical Tape Allergy Unknown rash, Uncoded 09/03/23 08:46 itching Review of Systems Review of Systems: As per HPI. Yes all other systems are reviewed and are negative Constitutional: Constitutional: Reports as per HPI [facility] Past Medical History Medical History Back pain Obesity Surgical History H/O shoulder surgery History of submandibular gland removal Previous back surgery Social History Social History Alcohol intake: current Patient Tobacco Use Status: Current everyday Tobacco user Smoked in Last 30 Days: No Use of substances other than those prescribed or required for medical reasons: No Advance Directives: No Advance Directives Information Provided: No Physical Exam Vital Signs: Vital Signs: Last Vital Signs Temp 97.6 F 09/03/23 10:29 Pulse 76 09/03/23 10:29 Resp 18 09/03/23 10:29 BP 163/83 H 09/03/23 10:29 Pulse Ox 96 09/03/23 10:29 O2 Del Method Room Air 09/03/23 10:29 BMI result Body Mass Index 37.7 Vital signs have been reviewed and appear to be correct. Blood pressure elevated. Heart rate normal. Respiratory rate normal. Temperature normal. Oxygen saturation normal. Const: General: cooperative and no acute distress Orientation/consciousness: oriented to person, oriented to place, oriented to time and patient oriented x3 Limitations: no limitations HEENT: Head: Yes normocephalic and Yes atraumatic Ears: external ears normal General nose exam: Normal external nose present Face and sinus: Yes face symmetric Mouth: oropharynx normal and moist mucous membranes Throat: Yes uvula midline Eyes: Pupils: Equal, round and reactive pupils present Neck: Neck: Yes normal visual inspection and Yes supple Resp: Effort & Inspection: normal respiratory effort and able to speak in complete sentences Auscultation: clear to auscultation bilaterally Cardio: Rate: regular rate Rhythm: regular rhythm Heart sounds: S1 normal heart sound present and S2 normal heart sound present GI: Palpation (GI): Soft to palpation and nontender Auscultation: normoactive bowel sounds : General: Yes no CVA tenderness Back/Spine/Pelvis: Back: no CVA tenderness Skin: General skin exam: elasticity normal and turgor normal Neuro: General: oriented to person, oriented to place, oriented to time, patient oriented x3, moves all extremities, no focal motor deficits and CN's II- XI intact bilaterally Cranial nerves: Yes Equal, round and reactive pupils present Cognition (Neuro): normal cognition Extrem: General: Yes full ROM, Yes no pedal edema and Yes no calf tenderness Left lower extremity: ankle Details: normal to inspection, tenderness Location: anteromedially, no edema and normal ROM; no ecchymosis and no crepitus and foot Details: normal capillary refill, normal to inspection, tenderness Location: of the dorsal foot Location: medially, toes with normal ROM, no edema and vascular exam Details: dorsalis pedis pulse present and posterior tibial pulse present; no ecchymosis and no crepitus Psych: Mental Status: mental status grossly normal Affect: normal affect Thought process: Normal thought process present Medications Administered Discontinued Medications Generic Name Dose Route Start Last Admin Trade Name Paoloq PRN Reason Stop Dose Admin Acetaminophen 975 mg 09/03/23 09:46 09/03/23 10:16 Acetaminophen 325 Mg Tablet PO 09/03/23 09:47 975 mg ONCE ONE Administration Ibuprofen 600 mg 09/03/23 09:46 09/03/23 10:15 Ibuprofen 600 Mg Tablet PO 09/03/23 09:47 600 mg ONCE ONE Administration Medical Decision Making Medical Decision Making [facility] Narrative: Patient is a 63-year-old male presenting to the emergency department with complaint of left foot pain since overnight. On exam patient is awake, A+Ox3, VS WNL, afebrile, normal neurological exam without focal deficits, physical exam findings as above. Given reported symptoms and physical exam findings, initial differential includes contusion, strain, sprain, fracture. X-ray notable for no acute fractures to left ankle or foot. My interpretation is in agreement with the radiologist's interpretation. Campos wrap applied with positive CMS prior to and after application of bandage. Patient medicated with Tylenol and ibuprofen as he reports he did not take any medications at home because he did not have any in the house. Advised patient to ice area intermittently throughout the day and keep elevated while at rest. Offered crutches which patient declined citing he is unable to use them due to previous back surgeries. States he is able to ambulate with his cane. Will prescribe 600mg ibuprofen as well as topical lidocaine patches. Will refer to orthopedics for further evaluation and management. Return precautions discussed at bedside. Patient verbalized understanding of and agreement with plan. Differential Diagnosis Differential Diagnoses: The differential diagnosis associated with the presentation includes As per MDM. Independent Interpretation I performed an independent interpretation of an: Plain X-Ray Interpretation: No acute fracture to left ankle or foot Radiology Impression Discussion of test interpretation with radiology: I have reviewed the radiologist's reading. Radiologist Impression: XR/XR foot LT min 3V IMPRESSION: Unremarkable study. XR/XR ankle LT 2V IMPRESSION: No acute findings. External Record Review External record reviewed: Inpatient record, Office record and Outpatient record Prescription Management I considered prescription management with: Pain Medication Discharge Plan Discharge Clinical Impression: Contusion of foot, left Patient Disposition: Home, Self-Care Instructions: Foot Contusion (ED), R.I.C.E. Treatment (ED) Additional Instructions: You have been evaluated in the emergency department today for left foot/ankle pain. Your evaluation did not find evidence of medical conditions requiring emergent intervention at this time. We have provided an CAMPOS wrap for you to use while your injury heals. Please rest, ice, and elevate your foot, and resume normal activities as tolerated. We recommend you take 600mg ibuprofen every 6 hours or 650mg Tylenol every 6 hours as needed for pain. If needed you can alternate these medications as they take 1 medication every 3 hours. For instance at noon take ibuprofen, then at 3:00 p.m. take Tylenol, then at 6:00 p.m. take ibuprofen. Please schedule an appointment for follow-up with your primary care provider this week. You are being referred to Orthopedics for further evaluation and management, please call their office to schedule an appointment. Return to the emergency department if you experience worsening pain, numbness, tingling, change of color in your foot, or any other concerning symptoms. Prescriptions: New ibuprofen 600 mg tablet 600 mg PO Q6H PRN (Reason: pain) Qty: 20 0RF lidocaine 5 % adhesive patch,medicated 1 patch topical DAILY Qty: 15 0RF Rx Instructions: leave on most painful area for up to 12 hrs No Action ketorolac 10 mg tablet 10 mg PO Q6H PRN (Reason: pain) 5 Days Qty: 20 0RF Rx Instructions: Patient received Toradol in the emergency room. cyclobenzaprine 10 mg tablet 10 mg PO BEDTIME PRN (Reason: muscle spasm) Qty: 3 0RF ondansetron 4 mg tablet,disintegrating 4 mg PO Q8H 3 Days Qty: 9 0RF ketorolac 10 mg tablet 10 mg PO Q6H PRN (Reason: pain) 5 Days 0RF lorazepam [Ativan] 2 mg tablet 2 mg PO DAILY PRN (Reason: sleep) Qty: 3 0RF ketorolac 10 mg tablet 10 mg PO Q6H 5 Days Qty: 20 0RF lorazepam [Ativan] 2 mg tablet 2 mg PO DAILY PRN (Reason: sleep) Qty: 3 0RF valacyclovir 1 gram tablet 1,000 mg PO TID 7 Days Qty: 21 0RF doxycycline hyclate 100 mg tablet 100 mg PO BID Qty: 14 0RF Referrals: [facility] [place] [facility] [Provider Group]
[2023-09-03] MEDS: Ibuprofen 600 MG TABLET PO (10:15)
[2023-09-03] MEDS: Acetaminophen 325 MG TABLET 975 MG PO (10:16)
[2023-09-03 10:29] VITALS: BP 163/83; PULSE 76; RESP 18; TEMP 36.4; O2SAT 96
== END 2023-09-03 11:37 | disposition home or self-care (01) ==
PROVIDERS: Emergency Provider Emergency Medicine Emergency Medical Services; PCP Internal Medicine
DX: S90.32XA Contusion of left foot, initial encounter (principal); W22.8XXA Striking against or struck by other objects, initial encounter; Y93.89 Activity, other specified; Y92.032 Bedroom in apartment as the place of occurrence of the external cause; Y99.9 Unspecified external cause status
CPT/HCPCS: 73600; 73630; 99283; 99284

== ENCOUNTER 2023-11-20 09:45 | Outpatient (AMB) | payer MEDICARE, MEDICAID, SELFPAY ==
[2023-11-20 09:52] VITALS: BP 168/88; PULSE 76; TEMP 36.1; O2SAT 97; BMI 39.6
--- NOTE | 2023-11-20 09:52 | AM.OFFWIN_ITS ---
Intake Vital Signs 11/20/23 09:52 Height 6 ft Weight 292 lb BMI 39.6 BP 168/88 H Blood Pressure Location Lt brachial Position Sitting Pulse 76 Pulse Source Pulse Oximeter Temp 97.0 F Temp Source Temporal Artery Scan Pulse Oximetry (%) 97 Oxygen Delivery Method Room Air Intake Visit Reasons: EP Chills, cough, SOB Intake Note: Pt presents to the office today for c/o chills, cough, SOB that started yesterday and has gotten progressively worse over the night. Patient Tobacco Use Status: Current everyday Tobacco user Allergies Surgical Tape Allergy (Unknown, Uncoded 11/20/23 09:55) rash, itching HPI HPI Comments History of Present Illness Details He presents to office with SOB States SOB since yesterday, Worsening onset today Dayquil otc without relief Stopped smoking 7 month ago + coughing with phlegm No fevers but + chills/sweats Minimal congestion, ST, ear pain No sick contacts PFSH Medical History Obesity Back pain Surgical History H/O shoulder surgery History of submandibular gland removal Previous back surgery Social History (Updated 11/20/23 @ 09:56 by Gabby Camejo CMA) Alcohol intake: current Patient Tobacco Use Status: Current everyday Tobacco user Review of Systems Const Denies body aches, Reports chills, Reports fatigue and Denies fever(s) Eyes Denies blurry vision ENT Reports otalgia, Reports nasal discharge and Reports sore throat Card Denies chest pain and Reports dyspnea Resp Reports cough, Reports dyspnea and Reports wheezing Endo Reports fatigue Aller/Immun Reports wheezing Physical Exam Vital Signs: Last Vital Signs Temp 97.0 F 11/20/23 09:52 Pulse 76 11/20/23 09:52 BP 168/88 H 11/20/23 09:52 Pulse Ox 97 11/20/23 09:52 Oxygen Delivery Method Room Air 11/20/23 09:52 BMI result Body Mass Index 39.6 General: Non-toxic, NAD. Speaking full sentences. Skin: Warm dry throughout Eye: EOMI HENT: Airway patent. Uvula midline. No pharyngeal erythema or edema. 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 Bilateral canals clear. TM +erythematous with slight bulge bilaterally. No TM perforation or hemotympanum noted. Respiratory: + crackles L base. No rales or wheeze. No tachypnea Cardiac: RRR. No murmur MSK: Full ROM extremities. Neurology: A/O. No aphasia or facial droop. Gait without abnormality Psych: Good mood and affect Assessment & Plan Assessment & Plan (1) Pneumonia: Code(s): J18.9 - Pneumonia, unspecified organism Qualifiers: Laterality: left Lung location: lower lobe of lung Pneumonia type: due to unspecified organism Qualified Code(s): J18.9 - Pneumonia, unspecified organism Plan: Patient seen and evaluated. + bilateral OM on exam Crackle L base Offered chest xray to confirm but pt would like to hold. I am okay as pt is afebrile and O2 is 97 on room air. Discussed worsening symptoms on onset chest xray go to ED Will cover with doxy; take with food Prednisone (no alcohol or nsaids). Take with food Offered covid/flu/rsv but pt lives alone and said he is planning on isolating. Patient gave verbal understanding and had no additional questions or concerns at time of discharge All questions answered (2) Otitis media: Code(s): H66.90 - Otitis media, unspecified, unspecified ear Qualifiers: Otitis media type: unspecified Chronicity: acute Qualified Code(s): H66.90 - Otitis media, unspecified, unspecified ear Plan: see above Medications: New doxycycline hyclate 100 mg PO BID 14 caps 0RF prednisone 40 mg (2 x 20 mg) PO DAILY 10 tabs 0RF benzonatate 200 mg PO BID-TID PRN 14 caps 0RF cough Coding Level of Care Code Est Pt Level 3 (40583) Diagnoses Pneumonia of left lower lobe due to infectious organism J18.9 Laterality: left Lung location: lower lobe of lung Pneumonia type: due to unspecified organism Acute otitis media, unspecified otitis media type H66.90 Otitis media type: unspecified Chronicity: acute
== END 2023-11-20 10:19 | disposition home or self-care (01) ==
PROVIDERS: PCP Internal Medicine; Visit Provider Physician Assistant
DX: J18.9 Pneumonia, unspecified organism (principal); H66.90 Otitis media, unspecified, unspecified ear
CPT/HCPCS: 99213

== ENCOUNTER 2023-11-25 07:38 | Inpatient (IN) | payer MEDICARE, MEDICAID, SELFPAY ==
[2023-11-25] VITALS (12 sets, daily range): BP systolic 135–196; BP diastolic 76–118; PULSE 68–107; RESP 16–24; TEMP 36.3–36.9; O2SAT 94–98; BMI 39.3
--- NOTE | ~2023-11-25 | CT_ITS ---
EXAMINATION: CT ANGIOGRAM OF THE CHEST WITH AND WITHOUT CONTRAST (CT PULMONARY ANGIOGRAM FOR PE) CLINICAL INFORMATION: Reason for Exam dyspnea rule out PE COMPARISON: Chest radiograph 11/25/2023 TECHNIQUE: Prior to contrast administration, noncontrast localization images were obtained. Subsequently, multidetector volumetric imaging was performed from the thoracic inlet to below the diaphragms following the administration of 65 mL Omnipaque 350 intravenous contrast. No contrast reaction reported Sagittal, coronal, and MIP oblique sagittal reformatted images were obtained on the CT workstation, uploaded to PACS, and reviewed. This CT examination was performed using dose optimization techniques as appropriate, variously including the following: *Automated exposure control *Adjustment of mA and/or kV according to patient size (this includes techniques or standardized protocols for targeted exams where dose is matched to indication/reason for exam; i.e. extremities or head) *Use of iterative reconstruction technique Total exam dose-length product 637 mGy-cm FINDINGS: QUALITY OF STUDY/CONTRAST BOLUS: Satisfactory. PULMONARY ARTERIES: No pulmonary emboli. THORACIC AORTA: No aneurysm. LUNG: Emphysematous changes are present along with a saber-sheath trachea and bronchial thickening. No focal consolidation, worrisome nodules or masses. PLEURA: No pleural effusion or pneumothorax. MEDIASTINUM: Normal heart size. No pericardial effusion. There is an unchanged 1.0 x 0.9 cm right hilar lymph node (7:160 and 603:394). This is only possible to see in retrospect on the prior study as that was performed without IV contrast. No worrisome hilar or mediastinal lymphadenopathy. No evidence of septal bowing or right heart strain. CORONARY ARTERY CALCIFICATION: Mild CHEST WALL/AXILLA: No axillary or internal mammary lymphadenopathy. OSSEOUS STRUCTURES: No acute or suspicious osseous abnormality. Degenerative changes are present throughout the spine. Loose osseous bodies are present in the right shoulder joint. UPPER ABDOMEN: Unremarkable. No reflux of contrast into the hepatic veins to suggest elevated right heart pressures. CT/CT angio chest PE protocol IMPRESSION: 1. No evidence of pulmonary emboli. 2. Emphysema with saber-sheath trachea and bronchial thickening. 3. Incidental note made of an unchanged 1 cm right hilar lymph node and other findings described above. VTE: negative.
--- NOTE | ~2023-11-25 | XR_ITS ---
EXAMINATION: XR CHEST CLINICAL INFORMATION: Recent pneumonia with persistent cough COMPARISON: CT of chest 02/16/2020 TECHNIQUE: Frontal view of the chest was obtained. FINDINGS: The heart and pulmonary vessels appear normal. No infiltrates, effusions or lung masses are seen. A tiny amount of atelectasis is seen at the left lung base. Large calcified intra-articular loose osseous bodies are seen in the right shoulder similar to prior CT scan. XR/XR chest 1V IMPRESSION: No acute intrathoracic disease.
--- NOTE | 2023-11-25 07:46 | ECG_ITS ---
Test Reason : SOB Blood Pressure : / mmHG Vent. Rate : 074 BPM Atrial Rate : 074 BPM P-R Int : 160 ms QRS Dur : 076 ms QT Int : 382 ms P-R-T Axes : 046 030 082 degrees QTc Int : 424 ms Normal sinus rhythm Normal ECG When compared with ECG of 29-DEC-2021 08:47, No significant change was found Referred By: Generic ED Physician Electronically Signed By:DIANN AHN
[2023-11-25 08:03] LABS: MANUAL DIFF FLAG NO
[2023-11-25 08:05] LABS: Basophils Absolute Auto 0.1 X10*3/uL (0.0-0.2); Basophils Percent Auto 0.5 % (0-2); Eosinophils Absolute Auto 0.2 X10*3/uL (0.0-0.4); Eosinophils Percent Auto 1.5 % (0-4); Hemoglobin 17.1 g/dl (14.0-18.0); Imm Gran Abs Auto 0.09 X10*3/uL (0.00-0.03); Imm Gran Pct Auto 0.7 % (0.0-0.4); Lymphocytes Absolute Auto 2.8 X10*3/uL (1.2-4.9); Lymphocytes Percent Auto 21.6 % (20-40); Mean Corpuscular HGB Conc 33.5 g/dl (31.0-36.0); Mean Corpuscular Hemoglobin 33.3 pg (27.0-33.0); Mean Corpuscular Volume 99.2 fL (80.0-98.0); Mean Platelet Volume 9.4 fL (9.4-12.4); Monocytes Absolute Auto 1.2 X10*3/uL (0.1-1.2); Monocytes Percent Auto 9.6 % (2-11); Neutrophils Absolute Auto 8.5 x10*3/uL (2.0-8.3); Neutrophils Percent Auto 66.1 % (45-73); Platelet Count 234 X10*3/uL (160-400); Red Blood Count 5.14 X10*6/uL (4.60-5.80); Red Cell Distribution Width 13.2 % (11.0-16.0); White Blood Count 12.9 X10*3/uL (4.8-10.8)
[2023-11-25 08:20] LABS: Anion Gap 13 (12-20); Blood Urea Nitrogen 23 mg/dL (9-16); Calcium 9.5 mg/dL (8.4-10.2); Carbon Dioxide 29 mmol/L (22-29); Chloride 105 mmol/L (96-108); Creatinine Clr Calc Pharmacy 120.5; Estimated Glomerular Filt Rate > 60; Glucose Random 150 mg/dL (60-115); Potassium 4.5 mmol/L (3.3-5.1); Sodium 142 mmol/L (135-145)
[2023-11-25 08:23] LABS: COVID-19 Test Negative (Negative); IDNOW Serial# 08D9AD1C
[2023-11-25 08:27] LABS: B Type Natriuretic Peptide 27 pg/mL (<100)
[2023-11-25 08:29] LABS: Troponin-I High Sensitivity < 2.7 ng/L (<3.5-35.0)
--- NOTE | 2023-11-25 10:05 | ED_ITS ---
HPI - SOB/Dyspnea General Chief Complaint: Dyspnea Stated Complaint: Diff breathing Time Seen by Provider: 11/25/23 09:40 Source: patient and old records reviewed Mode of arrival: ambulatory Limitations: no limitations History of Present Illness HPI Narrative: 63 yo male with PMH of HTN, former smoker did smoke total of 45 years, obesity, pneumonia in past here with c/o starting to have wheezing, cough, chills, fatigue and not feeling well starting Saturday. Seen urgent care on finished round of doxy and prednisone burst. He comes in today with c/o worsening symptoms no improvement cannot walk far has persistent wheezing is not on inhalers and notes he has difficulty sleeping and laying flat. MD elicited complaint: shortness of breath and cough Pertinent past history: pneumonia Onset (ago): day(s) (started last saturday) Context: recent illness Timing: progressively worsening Severity: moderate Exacerbating factors: lying flat, exertion, movement and coughing Relieving factors: rest and upright position Associated symptoms: cough, wheezing and sputum production Treatment prior to arrival: other (doxy, prednisone, tessalon) Related Data Home Medications ?Medication ?Instructions ?Recorded ?Confirmed lisinopril 30 mg tablet 30 mg PO DAILY 11/20/23 Previous Rx's ?Medication ?Instructions ?Recorded ibuprofen 600 mg tablet 600 mg PO Q6H PRN pain #20 tabs 09/03/23 benzonatate 200 mg capsule 200 mg PO BID-TID PRN cough #14 11/20/23 caps doxycycline hyclate 100 mg capsule 100 mg PO BID #14 caps 11/20/23 prednisone 20 mg tablet 40 mg (2 x 20 mg) PO DAILY #10 tabs 11/20/23 Allergies Allergy/AdvReac Type Severity Reaction Status Date / Time Surgical Tape Allergy Unknown rash, Uncoded 11/25/23 07:45 itching Review of Systems 2 Review of Systems: Constitutional : No Fever, pos Chills ENT/Mouth : No Hoarseness, No sore throat, No Rhinorrhea Eyes: No Redness, No Discharge, No Vision Changes Cardiovascular : No Chest Pain, positive SOB, positive Dyspnea on Exertion, No Edema Respiratory : positive Cough, pos Sputum, positive Wheezing, Gastrointestinal : No Nausea, No Vomiting, No Diarrhea, No abdominal Pain Genitourinary : No Dysuria, No Hematuria Musculoskeletal : No joint pain, No Myalgias Skin : No rash Neuro : No Weakness, No Numbness, No Headache Psych : No anxiety, depression Heme/Lymph: No Bruising, No Bleeding Endocrine : No Polyuria, No Polydipsia All other systems reviewed and are negative [facility] Past Medical History Attestation statement: The following information was validated with the patient. Source: old records reviewed Medical History Pneumonia HTN (hypertension) Obesity Back pain Surgical History H/O shoulder surgery History of submandibular gland removal Previous back surgery Social History Social History Alcohol intake: current Patient Tobacco Use Status: Current everyday Tobacco user Advance Directives: No Advance Directives Information Provided: No Physical Exam 2 Vital Signs: Vital Signs: Last Vital Signs Temp 98.5 F 11/25/23 12:49 Pulse 107 H 11/25/23 12:49 Resp 22 H 11/25/23 12:49 BP 135/82 11/25/23 12:49 Pulse Ox 96 11/25/23 12:49 O2 Del Method Room Air 11/25/23 12:49 BMI result Body Mass Index 39.3 Appearance: Alert. Oriented X3. No acute distress. Eyes: Pupils equal, round and reactive to light. ENT: Pharynx normal. Neck: Normal inspection. Neck supple. CVS: Normal heart rate and rhythm. Pulses normal. Respiratory: No respiratory distress. Breath sounds diffuse exp wheezes noted Abdomen: Soft and nontender. obesity Skin: Skin warm and dry. Normal skin color. Normal skin turgor. Extremities: No lower extremity edema. No calf ttp Neuro: Oriented X 3. No motor deficit. No sensory deficit. Medications Administered Discontinued Medications Generic Name Dose Route Start Last Admin Trade Name Freq PRN Reason Stop Dose Admin Albuterol Sulfate 5 mg/ 0 mg 11/25/23 10:16 11/25/23 10:19 Albuterol/Ipratropium 3 ml INHALE 11/25/23 10:17 1 each ONCE ONE Administration Albuterol Sulfate 2.5 mg/ 0 mg 11/25/23 11:18 11/25/23 11:20 Albuterol/Ipratropium 3 ml INHALE 11/25/23 11:19 1 dose ONCE ONE Administration Ceftriaxone Sodium 1 gm/ 50 mls @ 100 mls/hr 11/25/23 10:07 11/25/23 12:35 Sodium Chloride IV 11/25/23 10:36 100 mls/hr ONCE ONE Administration Iohexol 65 ml 11/25/23 12:23 11/25/23 12:23 Iohexol 350 Mg/Ml 100 Ml Infus..Btl IV 11/25/23 12:24 65 ml ONCE ONE Administration Methylprednisolone Sodium Succinate 60 mg 11/25/23 10:02 11/25/23 11:59 Methylprednisolone Sod Succ 125 Mg/2 Ml Vial IVPUSH 11/25/23 10:03 60 mg ONCE ONE Administration Medical Decision Making Medical Decision Making MDM Narrative: 63 yo male with PMH of obesity, pneumonia, HTN, former smoker no known hx of asthma here with c/o wheezing and chills and no improvement after prednisone and doxy. At this time given obesity and persistent symptoms with dyspnea will obtain labs, CTA for PE/pneumonia, start on bronchodilator and IV steroids, ceftriaxone. Low susp for ACS Differential Diagnosis Differential Diagnoses: The differential diagnosis associated with the presentation includes viral illness, bronchitis, pneumonia, PE, CHF Admission/Observation Consideration of admission/observation: Escalation of care including admission/observation considered still wheezing failed outpatient therapy will admit Consult Healthcare Provider Management of the patient was discussed with: Hospitalist (will admit) Lab Data [facility] Lab Attestation statement: I reviewed the patient's lab results. 11/25/23 07:58 11/25/23 07:58 Labs: Lab Results 11/25/23 11/25/23 Range/Units 07:58 10:02 WBC 12.9 H (4.8-10.8) X10*3/uL RBC 5.14 (4.60-5.80) X10*6/uL Hgb 17.1 (14.0-18.0) g/dl Hct 51.0 (42.0-52.0) % MCV 99.2 H (80.0-98.0) fL MCH 33.3 H (27.0-33.0) pg MCHC 33.5 (31.0-36.0) g/dl RDW 13.2 (11.0-16.0) % Plt Count 234 (160-400) X10*3/uL MPV 9.4 (9.4-12.4) fL Immature Gran % (Auto) 0.7 H (0.0-0.4) % Neut % (Auto) 66.1 (45-73) % Lymph % (Auto) 21.6 (20-40) % [place] % (Auto) 9.6 (2-11) % Eos % (Auto) 1.5 (0-4) % Baso % (Auto) 0.5 (0-2) % Lymph # (Auto) 2.8 (1.2-4.9) X10*3/uL [place] # (Auto) 1.2 (0.1-1.2) X10*3/uL Eos # (Auto) 0.2 (0.0-0.4) X10*3/uL Baso # (Auto) 0.1 (0.0-0.2) X10*3/uL Abs Immat Gran (auto) 0.09 H (0.00-0.03) X10*3/uL Absolute Neuts (auto) 8.5 H (2.0-8.3) x10*3/uL Absolute Nucleated RBC 0.000 (0.0-0.012) X10*3/uL Nucleated RBC % (auto) 0.0 (0.0-0.2) /100WBC Sodium 142 (135-145) mmol/L Potassium 4.5 (3.3-5.1) mmol/L Chloride 105 (96-108) mmol/L Carbon Dioxide 29 (22-29) mmol/L Anion Gap 13 (12-20) BUN 23 H (9-16) mg/dL Creatinine 0.88 (0.5-1.4) mg/dL Estim Creat Clear Calc 120.5 Estimated GFR > 60 Random Glucose 150 H (60-115) mg/dL Lactic Acid 1.0 (0.5-2.0) mmol/L Calcium 9.5 (8.4-10.2) mg/dL Magnesium 2.3 (1.6-2.6) mg/dL Total Bilirubin 1.4 H (0.0-1.0) mg/dL Direct Bilirubin 0.4 (0.0-0.5) mg/dL AST 15 (5-37) U/L ALT 33 (0-40) U/L Alkaline Phosphatase 60 (39-117) U/L Troponin I High Sens < 2.7 (<3.5-35.0) ng/L B-Natriuretic Peptide 27 (<100) pg/mL Total Protein 6.6 (6.5-8.0) g/dL Albumin 4.2 (3.5-5.0) g/dL Procalcitonin 0.03 ng/mL COVID-19 ([facility]) Negative (Negative) COVID-19 Clin Com See Note Influenza Type A (PCR) NEGATIVE (Negative) Influenza Type B (PCR) NEGATIVE (Negative) RSV RNA Qual (PCR) NEGATIVE (Negative) SARS-CoV-2 RNA (RT-PCR) NEGATIVE (Negative) Independent Interpretation I performed an independent interpretation of an: EKG, Plain X-Ray (no pneumonia seen) and CT Scan (no PE) Interpretation: Rate: 74 Rhythm: NSR [place]: normal Normal P waves. Normal [place]. Normal QRS complex. ST T wave : artfiact but no BENY qTC: 424 prior studies: no acute ischemia The study has been interpreted contemporaneously by me. . Radiology Impression Discussion of test interpretation with radiology: I have reviewed the radiologist's reading. External Record Review External record reviewed: Outpatient record Discharge Plan Discharge Clinical Impression: Acute bronchospasm, Viral bronchitis, Breath shortness Patient Disposition: Admitted As Inpatient Prescriptions: No Action ibuprofen 600 mg tablet 600 mg PO Q6H PRN (Reason: pain) Qty: 20 0RF lisinopril 30 mg tablet 30 mg PO DAILY prednisone 20 mg tablet 40 mg PO DAILY Qty: 10 0RF doxycycline hyclate 100 mg capsule 100 mg PO BID Qty: 14 0RF benzonatate 200 mg capsule 200 mg PO BID-TID PRN (Reason: cough) Qty: 14 0RF Print Language: Thai
[2023-11-25] MEDS: Albuterol Sulfate 5 MG, Albuterol/Iprat 2.5/0.5MG 3 ML 3 ML INHALE (10:19)
[2023-11-25 10:48] LABS: Procalcitonin 0.03 ng/mL
[2023-11-25 10:49] LABS: Influenza A PCR NEGATIVE (Negative); Influenza B PCR NEGATIVE (Negative); Resp Syncy Virus RNA Qual PCR NEGATIVE (Negative); SARS COV2 PCR INHOUSE NEGATIVE (Negative)
[2023-11-25 10:53] LABS: Alanine Aminotransferase 33 U/L (0-40); Albumin Level 4.2 g/dL (3.5-5.0); Alkaline Phosphatase 60 U/L (39-117); Aspartate Amino Transferase 15 U/L (5-37); Bilirubin Direct 0.4 mg/dL (0.0-0.5); Bilirubin Total 1.4 mg/dL (0.0-1.0); Magnesium 2.3 mg/dL (1.6-2.6); Total Protein 6.6 g/dL (6.5-8.0)
[2023-11-25] MEDS: Albuterol Sulfate 2.5 MG, Albuterol/Iprat 2.5/0.5MG 3 ML 3 ML INHALE (11:20)
[2023-11-25] MEDS: methylPREDNISolone Sod Succ 125 MG/2 ML VIAL 60 MG IVPUSH (11:59)
--- NOTE | 2023-11-25 12:05 | PC.NURSE ---
IV access re establised in right forearm- CT aware, IV in left AC infiltrated, HEat applied to area
[2023-11-25] MEDS: iohexoL 350 MG/ML 100 ML INFUS..BTL 65 ML IV (12:23)
[2023-11-25] MEDS: cefTRIAXone sodium 1 GM in 0.9 % Sodium Chloride 50 ML IV (12:35)
--- NOTE | 2023-11-25 13:21 | PM.IMHP ---
History of Present Illness Date of Service: 11/25/23 <TRISTEN Carmichael - Last Filed: 11/25/23 13:30> Attending physician on admission: Chrissy Nascimento <TRISTEN Carmichael - Last Filed: 11/25/23 13:30> Chief Complaint: sob, cough <TRISTEN Carmichael - Last Filed: 11/25/23 13:30> 63-year-old male with history of hypertension, severe obesity with BMI > 39, chronic low back pain, who has a former smoker with 22 pack-year history who quit smoking 6 months ago presented to the ED earlier today for evaluation of shortness of breath, wheezing, rhinorrhea, orthopnea, headache, and cough productive of clear/yellow sputum that has been ongoing for 5 days. Had previously been seen at urgent care and was prescribed doxycycline, 40 mg of prednisone, benzonatate which he took as prescribed with little effect. He denies any fevers, chills, sick contacts, sinus pain, sore throat, abdominal pain, nausea, vomiting, diarrhea, lightheadedness, palpitations, lower extremity edema, weight gain, or chest pain. No recent travel. No known history of chronic lung disease including COPD. Since arrival, patient has been tachypneic to 24. Did develop tachycardia to 107 following albuterol administration. No hypoxia or fevers. He has a leukocytosis of 12.9. Renal function baseline, electrolyte levels normal. Glucose 150. Lactic acid 1.0. Hepatic function unremarkable. Troponin below detectable limits. BNP 27. Negative for COVID-19, influenza, RSV. Chest x-ray unremarkable. CTA chest pending. EKG shows NSR, rate [address]/T-wave abnormality. In the ED, has been given multiple albuterol/DuoNeb treatments and IV methylprednisolone as well as 1 g IV ceftriaxone without improvement. Patient will be admitted for further management of viral bronchitis versus acute COPD exacerbation having failed outpatient therapies. <TRISTEN Carmichael - Last Filed: 11/25/23 13:30> Review of Systems Review of Systems: General: No fevers, malaise, unintentional weight loss HEENT: +rhinorrhea. No sore throat, nasal congestion, sinus pain, ear pain Cardiovascular: No chest pain, palpitations, or leg edema Respiratory: + shortness of breath,+ wheezing, +cough, +orthopnea GI: No abdominal pain, nausea, vomiting, diarrhea, constipation, melena, hematochezia : No dysuria, hematuria, increased urinary frequency, decreased urinary output MSK: No myalgia, back pain Neuro: No headaches, weakness, paresthesias Skin: No rashes or lesions <TRISTEN Carmichael - Last Filed: 11/25/23 13:30> [facility] Medical History: Medical History Pneumonia HTN (hypertension) Obesity Back pain <TRISTEN Carmichael - Last Filed: 11/25/23 13:30> Surgical History: Surgical History H/O shoulder surgery History of submandibular gland removal Previous back surgery <TRISTEN Carmichael - Last Filed: 11/25/23 13:30> Social History: Social History Alcohol intake: current Patient Tobacco Use Status: Current everyday Tobacco user Advance Directives: No Advance Directives Information Provided: No <TRISTEN Carmichael - Last Filed: 11/25/23 13:30> Meds Allergies/Adverse reactions: Allergies Allergy/AdvReac Type Severity Reaction Status Date / Time Surgical Tape Allergy Unknown rash, Uncoded 11/25/23 07:45 itching <TRISTEN Carmichael - Last Filed: 11/25/23 13:30> Home medications: Home Medications ?Medication ?Instructions ?Recorded ?Confirmed ?Last Taken ?Type lisinopril 30 mg tablet 30 mg PO DAILY 11/20/23 Unknown History <TRISTEN Carmichael - Last Filed: 11/25/23 13:30> Physical Exam Vital Signs and Narrative: Vital Signs: Last Vital Signs Temp 98.5 F 11/25/23 12:49 Pulse 107 H 11/25/23 12:49 Resp 22 H 11/25/23 12:49 BP 135/82 11/25/23 12:49 Pulse Ox 96 11/25/23 12:49 O2 Del Method Room Air 11/25/23 12:49 BMI result Body Mass Index 39.3 <TRISTEN Carmichael - Last Filed: 11/25/23 13:30> Constitutional - Awake and Alert, No apparent distress Eyes - PERRLA, EOMI Cardiovascular - S1S2, RRR, No edema Respiratory - Normal lung expansion, Normal respiratory effort, tachypneic, coarse expiratory wheezing most prominent in upper lobes bilaterally Gastrointestinal - NT / ND; +BS; No rebound or guarding Extremities - no calf tenderness bilaterally, no swelling Skin - Warm/Dry Neurological - Alert & oriented x3 Psychological - Appropriate affect <TRISTEN Carmichael - Last Filed: 11/25/23 13:30> Results Labs CBC and Chem 7: 11/25/23 07:58 11/25/23 07:58 <TRISTEN Carmichael - Last Filed: 11/25/23 13:30> Labs: Laboratory Results - last 24 hr 11/25/23 11/25/23 07:58 10:02 MCV 99.2 H MCH 33.3 H MCHC 33.5 RDW 13.2 Plt Count 234 MPV 9.4 Immature Gran % (Auto) 0.7 H Neut % (Auto) 66.1 Lymph % (Auto) 21.6 [place] % (Auto) 9.6 Eos % (Auto) 1.5 Baso % (Auto) 0.5 Lymph # (Auto) 2.8 [place] # (Auto) 1.2 Eos # (Auto) 0.2 Baso # (Auto) 0.1 Abs Immat Gran (auto) 0.09 H Absolute Neuts (auto) 8.5 H Absolute Nucleated RBC 0.000 Nucleated RBC % (auto) 0.0 Anion Gap 13 Estim Creat Clear Calc 120.5 Estimated GFR > 60 Random Glucose 150 H Lactic Acid 1.0 Calcium 9.5 Magnesium 2.3 Total Bilirubin 1.4 H Direct Bilirubin 0.4 AST 15 ALT 33 Alkaline Phosphatase 60 Troponin I High Sens < 2.7 B-Natriuretic Peptide 27 Total Protein 6.6 Albumin 4.2 Procalcitonin 0.03 COVID-19 (JUAN CARLOS) Negative COVID-19 Clin Com See Note Influenza Type A (PCR) NEGATIVE Influenza Type B (PCR) NEGATIVE RSV RNA Qual (PCR) NEGATIVE SARS-CoV-2 RNA (RT-PCR) NEGATIVE <TRISTEN Carmichael - Last Filed: 04/15/24 13:30> Imaging Radiologist's Impressions: Impressions Chest X-Ray 11/25/23 08:10 IMPRESSION: No acute intrathoracic disease. <TRISTEN Carmichael - Last Filed: 11/25/23 13:30> Assessment and Plan (1) COPD exacerbation: Status: Acute <TRISTEN Carmichael - Last Filed: 11/25/23 13:30> (2) Viral bronchitis: Status: Acute <TRISTEN Carmichael - Last Filed: 11/25/23 13:30> 63-year-old male with history of hypertension, severe obesity with BMI > 39, chronic low back pain, who has a former smoker with 22 pack-year history who quit smoking 6 months ago admitted for further management of suspected COPD exacerbation. patient has no formal diagnosis but given clinical presentation and significant smoking history, suspect has some degree of chronic obstructive lung disease with acute exacebration. #Supected COPD exacerbation -CXR unremarkable. CTA chest final read pending but appears negative for any focal consolidation or PE -negative for COVID-19, RSV, influenza. Full viral respiratory panel pending -DuoNebs q.4h while awake -albuterol p.r.n. -IV methylprednisolone 40 mg b.i.d. -azithromycin 500mg IV daily for pleiotropic effect -guaifenesin p.r.n. # sirs criteria -tachycardia due to albuterol use, leukocytosis due to recent steroid use. No sepsis # hypertension -continue lisinopril # severe obesity with BMI greater than 39 -patient has recently lost 50 lb and is congratulated on this. Encouraged to continue with weight loss efforts DVT prophylaxis-Lovenox Full code Patient requires inpatient stay at least 2 midnights for management of suspected COPD exacerbation having failed outpatient therapies and continues with significant wheezing with coarse lung sounds requiring IV steroids, scheduled DuoNebs, and close monitoring for decompensation. <TRISTEN Carmichael - Last Filed: 11/25/23 13:30> 63-year-old male with history of hypertension, severe obesity with BMI > 39, chronic low back pain, who has a former smoker with 22 pack-year history who quit smoking 6 months ago admitted for further management of suspected COPD exacerbation. patient has no formal diagnosis but given clinical presentation and significant smoking history, suspect has some degree of chronic obstructive lung disease with acute exacebration. #Supected COPD exacerbation -CXR unremarkable. CTA chest final read pending but appears negative for any focal consolidation or PE -negative for COVID-19, RSV, influenza. Full viral respiratory panel pending -DuoNebs q.4h while awake -albuterol p.r.n. -IV methylprednisolone 40 mg b.i.d. -azithromycin 500mg IV daily for pleiotropic effect -guaifenesin p.r.n. # sirs criteria -tachycardia due to albuterol use, leukocytosis due to recent steroid use. No sepsis # hypertension -continue lisinopril # severe obesity with BMI greater than 39 -patient has recently lost 50 lb and is congratulated on this. Encouraged to continue with weight loss efforts DVT prophylaxis-Lovenox Full code Patient requires inpatient stay at least 2 midnights for management of suspected COPD exacerbation having failed outpatient therapies and continues with significant wheezing with coarse lung sounds requiring IV steroids, scheduled DuoNebs, and close monitoring for decompensation. <Chrissy Nascimento MD - Last Filed: 11/25/23 13:34> Quality Stroke Does the patient have a stroke diagnosis?: No <TRISTEN Carmichael - Last Filed: 11/25/23 13:30> VTE Prior VTE?: No <TRISTEN Carmichael - Last Filed: 11/25/23 13:30> VTE Risk Level:: Medical - moderate - high <TRISTEN Carmichael - Last Filed: 11/25/23 13:30> VTE Device Contraindication: Treatment Not Indicated <TRISTEN Carmichael - Last Filed: 11/25/23 13:30> VTE Drug Contraindication: N/A - Med Ordered <TRISTEN Carmichael - Last Filed: 11/25/23 13:30>
[2023-11-25] MEDS: Azithromycin 500 MG in 0.9 % Sodium Chloride 250 ML 125 MG IV (14:05)
[2023-11-25] MEDS: 0.9 % Sodium Chloride Flush 3 ML SYRINGE IVFLUSH (14:06)
[2023-11-25] MEDS: guaiFENesin 200 MG/10 ML 10 ML LIQUID PO ×2 (14:06→18:04)
[2023-11-25] MEDS: Enoxaparin Sodium 40 MG/0.4 ML SYRINGE SUBCUT (14:06)
[2023-11-25] MEDS: methylPREDNISolone Sod Succ 40 MG/ML VIAL IVPUSH (14:06)
--- NOTE | 2023-11-25 14:26 | PHA.MEDREC ---
Pharmacy Consult ? Medication Reconciliation Pharmacy has completed the medication reconciliation. MED REC COMPLETE USING CLAIM HISTORY AND CONVERSATION WITH PATIENT. HE STATES HE USES FLOVENT NEEDED WHEN HE CAN'T BREATH BUT IT'S NOT OFTEN. HASN'T FILLED SINCE 01/04/23.
[2023-11-25] MEDS: Albuterol/Iprat 2.5/0.5MG 3 ML AMPUL.NEB INHALE ×2 (15:01→19:58)
[2023-11-26] VITALS (8 sets, daily range): BP systolic 138–162; BP diastolic 76–84; PULSE 73–91; RESP 17–20; TEMP 36.1–36.6; O2SAT 94–98
[2023-11-26] MEDS: 0.9 % Sodium Chloride Flush 3 ML SYRINGE IVFLUSH ×3 (02:04→15:58)
[2023-11-26] MEDS: guaiFENesin 200 MG/10 ML 10 ML LIQUID PO ×4 (02:04→21:16)
[2023-11-26] MEDS: methylPREDNISolone Sod Succ 40 MG/ML VIAL IVPUSH ×2 (02:05→13:46)
[2023-11-26] MEDS: Melatonin 3 MG TABLET 6 MG PO (02:19)
[2023-11-26] MEDS: Albuterol/Iprat 2.5/0.5MG 3 ML AMPUL.NEB INHALE ×4 (06:29→19:46)
[2023-11-26 06:47] LABS: MANUAL DIFF FLAG NO
[2023-11-26 06:56] LABS: Basophils Percent Auto 0.1 % (0-2); Hematocrit 49.6 % (42.0-52.0); Hemoglobin 16.8 g/dl (14.0-18.0); Imm Gran Abs Auto 0.11 X10*3/uL (0.00-0.03); Imm Gran Pct Auto 0.9 % (0.0-0.4); Lymphocytes Percent Auto 8.6 % (20-40); Mean Corpuscular HGB Conc 33.9 g/dl (31.0-36.0); Mean Corpuscular Hemoglobin 33.7 pg (27.0-33.0); Mean Corpuscular Volume 99.4 fL (80.0-98.0); Mean Platelet Volume 9.7 fL (9.4-12.4); Monocytes Absolute Auto 0.4 X10*3/uL (0.1-1.2); Monocytes Percent Auto 3.5 % (2-11); Neutrophils Absolute Auto 10.3 x10*3/uL (2.0-8.3); Neutrophils Percent Auto 86.9 % (45-73); Platelet Count 231 X10*3/uL (160-400); Red Blood Count 4.99 X10*6/uL (4.60-5.80); Red Cell Distribution Width 13.2 % (11.0-16.0); White Blood Count 11.9 X10*3/uL (4.8-10.8)
[2023-11-26 07:14] LABS: Anion Gap 13 (12-20); Blood Urea Nitrogen 21 mg/dL (9-16); Calcium 9.3 mg/dL (8.4-10.2); Carbon Dioxide 25 mmol/L (22-29); Chloride 106 mmol/L (96-108); Creatinine Clr Calc Pharmacy 134.2; Estimated Glomerular Filt Rate > 60; Glucose Random 156 mg/dL (60-115); Potassium 4.7 mmol/L (3.3-5.1); Sodium 139 mmol/L (135-145)
[2023-11-26] MEDS: lisinopriL 10 MG TABLET 30 MG PO (08:32)
--- NOTE | 2023-11-26 09:48 | MHC.CM.PN ---
IMM 11/26/23 DX COPD EXACERBATION. He lives by himself. He is independent with all functional mobility. A HCP has been documented and scanned into EMR. DP home self care. Patient will self transport. His car is in [email or web address] lot.
--- NOTE | 2023-11-26 10:33 | HO.PM.IMPN ---
Subjective Subjective Date of Service: 11/26/23 Interval History: Continues to have dyspnea which is worse with exertion and wheezing. Respiratory Respiratory: Reports cough and Reports wheezing Allergic/Immunologic Allergic/Immunologic: Reports wheezing Physical Exam Vital Signs: Vital Signs: Last Vital Signs Temp 97.9 F 11/26/23 07:22 Pulse 87 11/26/23 07:22 Resp 18 11/26/23 07:22 BP 143/81 H 11/26/23 07:22 Pulse Ox 94 11/26/23 07:22 O2 Del Method Room Air 11/26/23 07:22 BMI result Body Mass Index 39.3 Middle-aged male lying in bed in mild distress Neck supple, no JVD Regular rate and rhythm, S1-S2 heard Tachypneic with bilateral wheezing Abdomen soft nontender, no guarding, no rigidity Patient is awake, alert and oriented to self, place, time and person ; no focal motor deficit Psych: Normal mood No pedal edema Objective Data Active Medications Acetaminophen (Acetaminophen 325 Mg Tablet) 650 mg PO Q6H PRN PRN Reason: Pain, Mild (Pain Scale 1-3) Albuterol Sulfate (Albuterol Sulfate (0.083%) 2.5 Mg/3 Ml Vial.Neb) 2.5 mg INHALE Q2H PRN PRN Reason: Shortness of Breath/Wheezing Albuterol/Ipratropium (Albuterol/Iprat 2.5/0.5mg 3 Ml Ampul.Neb) 3 ml INHALE RQ4H WHILE AWAKE [facility] Last Admin: 11/26/23 06:29 Dose: 3 ml Documented By: JOVANY Enoxaparin Sodium (Enoxaparin Sodium 40 Mg/0.4 Ml Syringe) 40 mg SUBCUT Q24H [facility] Last Admin: 11/25/23 14:06 Dose: 40 mg Documented By: FIDEL Guaifenesin (Guaifenesin 200 Mg/10 Ml 10 Ml Liquid) 10 ml PO Q6H [facility] Last Admin: 11/26/23 07:38 Dose: 10 ml Documented By: CARLOS Azithromycin 500 mg/ Sodium (Chloride) 250 mls @ 125 mls/hr IV Q24H [facility] Last Infusion: 11/25/23 17:47 Dose: Infused Documented By: RAJNI Lisinopril (Lisinopril 10 Mg Tablet) 30 mg PO DAILY [facility]; Protocol Last Admin: 11/26/23 08:32 Dose: 30 mg Documented By: CARLOS Melatonin (Melatonin 3 Mg Tablet) 6 mg PO BEDTIME PRN PRN Reason: Insomnia Last Admin: 11/26/23 02:19 Dose: 6 mg Documented By: BRAIN Methylprednisolone Sodium Succinate (Methylprednisolone Sod Succ 40 Mg/Ml Vial) 40 mg IVPUSH Q12H [facility] Last Admin: 11/26/23 02:05 Dose: 40 mg Documented By: ANTTRINA Non-Formulary Medication (Cyclosporine) 1 drop EYE-BOTH BID [facility] Ondansetron HCl (Ondansetron Hcl 4 Mg/2 Ml Vial) 4 mg IVPUSH Q8H PRN PRN Reason: Nausea and Vomiting Senna (Sennosides 8.6 Mg Tablet) 17.2 mg PO BEDTIME PRN PRN Reason: Constipation Sodium Chloride (0.9 % Sodium Chloride Flush 3 Ml Syringe) 3 ml IVFLUSH QSHIFT [facility] Last Admin: 11/26/23 07:38 Dose: 3 ml Documented By: CARLOS Labs 11/26/23 06:19 11/26/23 06:19 Labs: Laboratory Results - last 24 hr 11/25/23 11/25/23 11/26/23 07:58 10:02 06:19 MCV 99.4 H MCH 33.7 H MCHC 33.9 RDW 13.2 Plt Count 231 MPV 9.7 Immature Gran % (Auto) 0.9 H Neut % (Auto) 86.9 H Lymph % (Auto) 8.6 L [place] % (Auto) 3.5 Eos % (Auto) 0.0 Baso % (Auto) 0.1 Lymph # (Auto) 1.0 L [place] # (Auto) 0.4 Eos # (Auto) 0.0 Baso # (Auto) 0.0 Abs Immat Gran (auto) 0.11 H Absolute Neuts (auto) 10.3 H Absolute Nucleated RBC 0.000 Nucleated RBC % (auto) 0.0 Anion Gap 13 Estim Creat Clear Calc 134.2 Estimated GFR > 60 Random Glucose 156 H Calcium 9.3 Magnesium 2.3 Total Bilirubin 1.4 H Direct Bilirubin 0.4 AST 15 ALT 33 Alkaline Phosphatase 60 Total Protein 6.6 Albumin 4.2 Procalcitonin 0.03 Influenza Type A (PCR) NEGATIVE Influenza Type B (PCR) NEGATIVE RSV RNA Qual (PCR) NEGATIVE SARS-CoV-2 RNA (RT-PCR) NEGATIVE Assessment and Plan (1) COPD exacerbation: Status: Acute Plan 63-year-old male with history of hypertension, severe obesity with BMI > 39, chronic low back pain, who has a former smoker with 22 pack-year history who quit smoking 6 months ago admitted for further management of suspected COPD exacerbation. patient has no formal diagnosis but given clinical presentation and significant smoking history, suspect has some degree of chronic obstructive lung disease with acute exacebration. # Acute COPD exacerbation -albuterol p.r.n. -IV methylprednisolone 40 mg b.i.d. -azithromycin 500mg IV daily for pleiotropic effect -guaifenesin p.r.n. -will need outpatient follow-up spirometry and pulmonology # hypertension -continue lisinopril # severe obesity with BMI greater than 39 -patient has recently lost 50 lb and is congratulated on this. Encouraged to continue with weight loss efforts DVT prophylaxis-Lovenox Full code Reason for continued hospitalization: IV steroids, close monitoring of breathing Anticipate home discharge tomorrow Quality Stroke Does the patient have a stroke diagnosis?: No VTE Prior VTE?: No VTE Risk Level:: Medical - moderate - high VTE Device Contraindication: Treatment Not Indicated VTE Drug Contraindication: N/A - Med Ordered
[2023-11-26 13:14] LABS: Adenovirus PCR Not Detected (Not Detect.); Bordetella parapertussis PCR Not Detected (Not Detect.); Bordetella pertussis PCR Not Detected (Not Detect.); Chlamydia pneumoniae PCR Not Detected (Not Detect.); Coronavirus 229E PCR Not Detected (Not Detect.); Coronavirus HKU1 PCR Not Detected (Not Detect.); Coronavirus NL63 PCR Not Detected (Not Detect.); Coronavirus OC43 PCR Not Detected (Not Detect.); Human metapneumovirus PCR Not Detected (Not Detect.); Influenza A PCR Not Detected (Not Detect.); Influenza B PCR Not Detected (Not Detect.); Mycoplasma pneumoniae PCR Not Detected (Not Detect.); Parainfluenza 1 PCR Not Detected (Not Detect.); Parainfluenza 2 PCR Not Detected (Not Detect.); Parainfluenza 3 PCR Not Detected (Not Detect.); Parainfluenza 4 PCR Not Detected (Not Detect.); RSV PCR Not Detected (Not Detect.); Rhino/Enterovirus PCR Detected (Not Detect.)
[2023-11-26 13:17] LABS: SARS-CoV-2 PCR Not Detected (Not Detect.)
[2023-11-26] MEDS: Enoxaparin Sodium 40 MG/0.4 ML SYRINGE SUBCUT (13:46)
[2023-11-26] MEDS: Azithromycin 500 MG in 0.9 % Sodium Chloride 250 ML 125 MG IV (13:47)
[2023-11-26] MEDS: Zolpidem Tartrate 5 MG TABLET PO (21:16)
[2023-11-27 02:52] VITALS: BP 144/67; PULSE 70; RESP 18; TEMP 36.1; O2SAT 96
[2023-11-27] MEDS: methylPREDNISolone Sod Succ 40 MG/ML VIAL IVPUSH (02:52)
[2023-11-27] MEDS: guaiFENesin 200 MG/10 ML 10 ML LIQUID PO ×2 (02:52→07:00)
[2023-11-27] MEDS: lisinopriL 10 MG TABLET 30 MG PO (07:00)
[2023-11-27] MEDS: 0.9 % Sodium Chloride Flush 3 ML SYRINGE IVFLUSH (07:00)
[2023-11-27 07:33] VITALS: PULSE 70; RESP 18; O2SAT 98
[2023-11-27] MEDS: Albuterol/Iprat 2.5/0.5MG 3 ML AMPUL.NEB INHALE (07:33)
[2023-11-27 07:49] VITALS: BP 171/76; PULSE 79; RESP 18; TEMP 36.2; O2SAT 95
[2023-11-27] MEDS: methylPREDNISolone Sod Succ 125 MG/2 ML VIAL 60 MG IVPUSH (10:19)
[2023-11-27] MEDS: oxyCODONE HCl Immed Release 5 MG TABLET 10 MG PO (10:19)
--- NOTE | 2023-11-27 10:22 | P.DS_ITS ---
DS: Providers Provider Date of Service: 11/27/23 Date of admission: 11/25/23 13:19 Date of discharge: 11/27/23 Primary care physician: Lucio Banda MD DS: Diagnosis Discharge Diagnosis (1) COPD exacerbation: Status: Acute DS: Summary Hospital Course Hospital Course: 63-year-old male with history of hypertension, severe obesity with BMI > 39, chronic low back pain, who has a former smoker with 22 pack-year history who quit smoking 6 months ago presented to the ED earlier today for evaluation of shortness of breath, wheezing, rhinorrhea, orthopnea, headache, and cough productive of clear/yellow sputum that has been ongoing for 5 days. Had previously been seen at urgent care and was prescribed doxycycline, 40 mg of prednisone, benzonatate which he took as prescribed with little effect. He denies any fevers, chills, sick contacts, sinus pain, sore throat, abdominal pain, nausea, vomiting, diarrhea, lightheadedness, palpitations, lower extremity edema, weight gain, or chest pain. No recent travel. No known history of chronic lung disease including COPD. Since arrival, patient has been tachypneic to 24. Did develop tachycardia to 107 following albuterol administration. No hypoxia or fevers. He has a leukocytosis of 12.9. Renal function baseline, electrolyte levels normal. Glucose 150. Lactic acid 1.0. Hepatic function unremarkable. Troponin below detectable limits. BNP 27. Negative for COVID-19, influenza, RSV. Chest x-ray unremarkable. CTA chest pending. EKG shows NSR, rate [address]/T-wave abnormality. In the ED, has been given multiple albuterol/DuoNeb treatments and IV methylprednisolone as well as 1 g IV ceftriaxone without improvement. Hospital course Patient was admitted to general medical floor and maintained on IV pulse dose methylprednisolone as well as azithromycin. He continued to improve and on the day of discharge he is without wheeze and no O2 requirement. He will be discharged home to complete a 3 day course of azithromycin and prednisone taper Time Attestation Discharge Coordination Time (in mins): 35 Quality: Safe Use of Opioids Does Pt have an Active Cancer Diagnosis on the Problem List?: No Quality: Stroke Does the patient have a stroke diagnosis?: No Physical Exam Vital Signs: Vital Signs: Last Vital Signs Temp 97.1 F 11/27/23 07:49 Pulse 79 11/27/23 07:49 Resp 18 11/27/23 07:49 BP 171/76 H 11/27/23 07:49 Pulse Ox 95 11/27/23 07:49 O2 Del Method Room Air 11/27/23 07:49 BMI result Body Mass Index 39.3 Const: Other: Awake alert oriented x3 no acute distress Resp: Other: Clear to auscultation bilaterally no rales rhonchi or wheezes Cardio: Other: No S4; positive S1-S2; no S3 murmurs rubs or gallops GI: Other: Soft nontender nondistended normoactive bowel sounds Extrem: Other: No edema bilaterally DS: Data Data Completed and Pending Labs on day of discharge: Laboratory Results - last 24 hr 11/26/23 09:25 Respiratory Panel Dominguez See Note Adenovirus (Rapid PCR) Not Detected B.pert (TEM-PCR) Not Detected B.parapertussis DNA PCR Not Detected C. pneumoniae DNA (PCR) Not Detected Coronavirus OC43 (PCR) Not Detected Coronavirus HKU1 (PCR) Not Detected Coronavirus 229E (PCR) Not Detected Coronavirus NL63 (PCR) Not Detected Human Metapneumovir PCR Not Detected Influenza A (RT-PCR) Not Detected Influenza B (RT-PCR) Not Detected M. pneumoniae (PCR) Not Detected Parainfluenza 1 (PCR) Not Detected Parainfluenza 2 (PCR) Not Detected Parainfluenza 3 (PCR) Not Detected Parainfluenza 4 (PCR) Not Detected RSV (PCR) Not Detected Entero/Rhino (PCR) Detected A SARS-CoV-2 RNA (RT-PCR) Not Detected Preliminary micro results at discharge 11/25/23 11:38 Blood Culture - Preliminary Blood - Venous No growth after 24 hours. 11/25/23 10:02 Blood Culture - Preliminary Blood - Venous No growth after 24 hours. Discharge Plan Discharge Anticipated Discharge Date/Time: 11/27/23 10:13 Patient Disposition: Home, Self-Care Discharge Diagnosis: COPD exacerbation Referrals: Lucio Banda MD [Primary Care Provider] - 1 Week Discharge Medications: New oxycodone 10 mg tablet 10 mg PO Q6H PRN (Reason: pain (scale score 4-6)) Qty: 20 0RF Rx Instructions: Partial Fill upon patient request. prednisone 10 mg tablet See Rx Instructions .Route .COMPLEX Qty: 45 0RF Rx Instructions: 10 mg orally; 5 tabs p.o. daily x3 days; 4 tabs p.o. daily x3 days; 3 tabs daily x3 days; 2 tabs daily x3 days; 1 tab daily x3 days azithromycin 500 mg tablet 500 mg PO DAILY 3 Days Qty: 3 0RF albuterol sulfate 90 mcg/actuation HFA aerosol inhaler 2 inh inhalation Q4H PRN (Reason: shortness of breath or wheezing) Qty: 8.5 0RF Continued cyclosporine 0.05 % dropperette 1 drp ophthalmic (eye) BID lisinopril 30 mg tablet 30 mg PO DAILY No Action doxycycline hyclate 100 mg capsule 100 mg PO BID Qty: 14 0RF Rx Instructions: LAST DOSE 11/26/23 @0600 Discharge Orders: Discharge Order (Routine); Ordered 11/27/23 Ordered By: Jason Mccord Diet: Advance to usual diet Activity on Discharge: As tolerated Stand Alone Forms: Patient Portal Discharge page Print Language: [place] Irish Care Plan Goals: Complete prednisone taper as ordered. Azithromycin 500 mg daily for 3 days Health Concerns: Follow-up with PCP next available Plan of Treatment: Albuterol inhaler 2 puffs q.4 hours for wheezing Assessment: See discharge summary
--- NOTE | 2023-11-27 10:36 | MHC.CM.PN ---
DP: PT HAS BEEN MEDICALLY CLEARED FOR DC HOME, NO SERVICES. PT HAS OWN [facility] HOME.
--- NOTE | 2023-12-14 11:53 | P.CDIM_ITS ---
PROVIDER RESPONSE TEXT: To clarify, the appropriate diagnosis supported by the clinical indicators: COPD exacerbation due to Rhinovirus QUERY TEXT: PHYSICIAN'S DOCUMENTATION REQUEST Date of Query: 12/03/2023 02:15 PM EDT Patient Name: Cory Ricardo Admit Date: 11/25/2023 Dear Jason Mccord, A review of the medical record indicates additional documentation may be needed. Please review below and update the documentation accordingly. Clinical Indicators: The following diagnoses or signs and symptoms were noted in the patient record: Per lab report 11/26/23: Entero/Rhino (PCR) detected Rhinovirus is not documented in the Discharge Summary Patient was admitted and treated for COPD exacerbation Per Discharge Summary 11/27/23: treated with IV pulse dose methylprednisolone as well as azithromycin discharged home to complete a 3 day course of azithromycin and prednisone taper Based on the above, could you clarify the appropriate diagnosis, if significant, that supports the ab ove abnormalities and additional evaluation, monitoring, and/or treatment rendered: COPD exacerbation due to Rhinovirus COPD exacerbation not due to Rhinovirus Other (explain) Clinically unable to determine (explain) Thank you, Masha Kaufman RN Use of terms such as suspected, likely, concern for, or probable (associated with a specific diagnosi s that is being evaluated, monitored, or treated as if it exists) are acceptable and can be coded in the inpatient se tting, when documented at the time of discharge. Please use your independent medical judgment in providing your response. THIS QUERY IS PART OF THE PERMANENT MEDICAL RECORD
== END 2023-11-27 10:50 | disposition home or self-care (01) | DRG 192 ==
LOC: HO.ED 13:14 → HO.EDOVER 13:24 → HO.S3 17:13
PROVIDERS: Student in an Organized Health Care Education/Training Program; Admitting Provider Physician Assistant; Emergency Provider Emergency Medicine; PCP Internal Medicine; Visit Provider Hospitalist
DX: J44.1 Chronic obstructive pulmonary disease with (acute) exacerbation (principal); I10 Essential (primary) hypertension; B97.89 Other viral agents as the cause of diseases classified elsewhere; E66.01 Morbid (severe) obesity due to excess calories; Z71.3 Dietary counseling and surveillance; Z68.39 Body mass index [BMI] 39.0-39.9, adult; Z20.822 Contact with and (suspected) exposure to COVID-19; Z87.891 Personal history of nicotine dependence; Z79.899 Other long term (current) drug therapy
CPT/HCPCS: 0241U; 36415; 71045; 71275; 80048; 80076; 83605; 83735; 83880; 84145; 84484; 85025; 87040; 87633; 87635; 93005; 94640; 99285; J0456; J0696; J1650; J2920; J2930; Q9967

== ENCOUNTER → 2023-11-25 07:46 | Outpatient (BNV) | payer MEDICARE, MEDICAID, SELFPAY | PROVIDERS: Admitting Provider Physician Assistant; Emergency Provider Emergency Medicine; PCP Internal Medicine; Visit Provider Internal Medicine | DX: R06.02 Shortness of breath (principal) | CPT/HCPCS: 93010 ==

== ENCOUNTER → 2023-11-25 13:19 | Outpatient (BNV) | payer MEDICARE, MEDICAID, SELFPAY | PROVIDERS: Admitting Provider Physician Assistant; Emergency Provider Emergency Medicine; PCP Internal Medicine; Visit Provider Physician Assistant | DX: J44.1 Chronic obstructive pulmonary disease with (acute) exacerbation (principal) | CPT/HCPCS: 99223; 99232; 99239 ==

== ENCOUNTER 2023-12-02 11:17 | Outpatient (AMB) | payer MEDICARE, MEDICAID, SELFPAY ==
[2023-12-02 11:20] VITALS: BP 160/82; PULSE 77; TEMP 36.8; O2SAT 97
--- NOTE | 2023-12-02 11:20 | MHC.OFFWIV ---
Intake Vital Signs 12/02/23 11:20 Height 6 ft BP 160/82 H Blood Pressure Location Lt brachial Position Sitting Pulse 77 Pulse Source Pulse Oximeter Temp 98.3 F Temp Source Oral Pulse Oximetry (%) 97 Intake Visit Reasons: EP Cough, congestion/unable to hear Intake Note: pt is here for c/o of cough, congestion and unable to breath and hear. patient was in ED and had to leave due to a passing in his family and states he is still having difficulty breathing and states he has RHINO Patient Tobacco Use Status: Former Tobacco user Allergies Surgical Tape Allergy (Unknown, Uncoded 12/02/23 11:23) rash, itching Do you need a note to return to daycare/school/sports/work: No HPI HPI Comments History of Present Illness Details Patient presents to the walk-in today for sick visit Today complaining of sinus congestion. It started approximately 10 days ago. Patient was seen at the walk-in 11/19 4 shortness of breath and cough. He was diagnosed with URI, pneumonia and bilateral otitis media. Patient completed course of doxy and prednisone. Symptoms did not resolve so he then sought treatment in the emergency room. He was diagnosed with rhino virus, discharged with albuterol MDI, 2nd course of prednisone and Z-Juvenal. He has completed these, states that his breathing has improved but continues with sinus congestion. He has been taking Robitussin [id number] without improvement of his symptoms. Denies fever, chest pain, syncope, dizziness, weakness, headache. PFSH Medical History Pneumonia HTN (hypertension) Obesity Back pain Surgical History H/O shoulder surgery History of submandibular gland removal Previous back surgery Social History Household Members: None Housing: Condominium Do you presently have visiting nurse or other home services: No Alcohol intake: current Alcohol intake frequency: does not drink Patient Tobacco Use Status: Former Tobacco user Substance Use Type: Marijuana service: No Review of Systems Const All systems reviewed & are unremarkable except as noted in HPI and below Physical Exam Vital Signs: Last Vital Signs Temp 98.3 F 12/02/23 11:20 Pulse 77 12/02/23 11:20 BP 160/82 H 12/02/23 11:20 Pulse Ox 97 12/02/23 11:20 General: awake, alert, oriented. Answers questions appropriately. Fully engaged in examination. Skin: warm, dry, intact HEENT: TMs intact bilaterally, without erythema or exudate. Posterior pharynx without erythema or exudate. Sclera without icterus or injection. Cardiac: External chest normal in appearance. Respiratory: LSCTAB. Abdomen: without gross distension. Neurological: Oriented to person, place, time and situation. Thought process intact. Psychiatric: Appropriate mood and affect. Good judgment and insight. Assessment & Plan Assessment & Plan (1) URI (upper respiratory infection): Code(s): J06.9 - Acute upper respiratory infection, unspecified Plan URI, no abx warranted. Rest, drink plenty of fluids, tylenol or motrin as needed. Recommend taking OTC nasal decongestants, speak with pharmacist about heart healthy options Follow up with pcp or in clinic for any new or worsening symptoms. Go to ER for shortness of breath, chest pain, palpitations, weakness, dizziness. Coding Level of Care Code Est Pt Level 3 (72913) Diagnoses URI (upper respiratory infection) J06.9
== END 2023-12-02 11:56 | disposition home or self-care (01) ==
PROVIDERS: PCP Internal Medicine; Visit Provider Registered Nurse Emergency
DX: J06.9 Acute upper respiratory infection, unspecified (principal)
CPT/HCPCS: 99213

== ENCOUNTER 2025-07-17 10:09 | Outpatient (AMB) | payer MEDICARE, SELFPAY ==
--- OUTSIDE RECORDS SUMMARY | 2025-07-17 10:13 | XMS_ITS ---
Author Name [facility] Organization Unknown Care Team Organization Name Specialty Phone Email Start Date End Da te [facility] Banda Primary Care 01/18/2023 03/30/2024 [facility] Termed, PROVIDER Primary Care 08/20/202203/12
--- OUTSIDE RECORDS SUMMARY | 2025-07-17 10:13 | XMS_ITS | Clinical Summary ---
Author Organization [facility] Address [address] [place] [id number] Phone Care Team Providers Care Instrumentation Designer Name Role Phone Lucio Banda MD Primary Care Provider [phone] Allergies Active Allergy Reactions Criticality Noted Date Comments Adhesive Rash Low 06/08/2022 Medications No known medications Active Problems No known active problems Social History Tobacco Use Types Packs/Day Years Used Date Smoking Tobacco: Never Assessed Education Answer Date Recorded Are you interested in more education? Not on gustavo e 12/08/2022 Are you concerned about learning? Not on file 12/08/2022 No 12/08/2022 No 12/08/2022 Digital Access Answer Date Recorded No 01/06/2023 No 01/06/2023 Reliable internet access at home? Not on file 01/06/2023 Device with a working camera? Not on file Sex and Gender Information Value Date Recorded Sex Assigned at Not on file Legal Sex Male 12:37 PM EDT Gender Identity Not on file Sexual Orientation Not on file Last Filed Vital Signs Vital Sign Reading Time Taken Comments Blood Pressure - - Pulse - - Temperature - - Respiratory Rate - - Oxygen Saturation - - Inhaled Oxygen Concentration - - Weight 129.3 kg (285 lb) 06/08/2022 1:03 PM EDT Height 182.9 cm (6') 06/08/2022 1:03 PM EDT Body Mass Index 38.65 06/08/2022 1:03 PM EDT Plan of Treatment Health Maintenance Due Date Last Done Comments Adult Td,Tdap Booster 1960 LIPID PANEL 1960 DEPRESSION SCREENING 1972 SMOKING Hx and SMOKELESS TOB ACCO SCREENING 02/05/1973 HEPATITIS C SCREENING 02/05/1978 HIV ONE-TIME SCREENING (18-6 5 YEARS) 02/05/1978 COLOGUARD 02/05/2005 COLONOSCOPY 02/05/2005 COLORECTAL CANCER SCREENING 02/05/2005 FIT TEST 02/05/2005 FOBT 02/05/2005 SIGMOIDOSCOPY 02/05/2005 VIRTUAL COLONOSCOPY 02/05/2005 PNEUMOCOCCAL VACCINES (50+ y ears) (1 of 1 - PCV) 02/05/2010 ZOSTER VACCINES (1 of 2) 02/05/2010 INFLUENZA VACCINE (#1) 2025 COVID-19 VACCINE (1 - 2024-2 6 season) 2025 RSV VACCINE (1 - 1-dose 75+ series) 02/05/2035 HEPATITIS A VACCINES Aged Out No long er eligible based on patient's age to complete this topic HIB VACCINES Aged Out No longer eligi ble based on patient's age to complete this topic MENINGOCOCCAL VACCINES (ACWY) Aged Out No longer eligible based on patient's age to complete this topic MENINGOCOCCAL VACCINES (B) Aged Out N o longer eligible based on patient's age to complete this topic Medical Devices Not on file [email or web address] [place] [facility] [place] & B Care Teams Instrumentation Designer Relationship Specialty Start Date End Date Lucio Banda MD [address] [place] [address] PCP - General Internal Medicine 06/08/22 Additional Source Comments The information contained in this document represents components of the legal health record. It is not the complete legal health record.[facility]
[2025-07-17 10:48] VITALS: BP 142/80; PULSE 76; TEMP 36.7; O2SAT 96
--- NOTE | 2025-07-17 10:48 | AM.OFFWIN_ITS ---
Intake Vital Signs 07/17/25 10:48 Height 6 ft BMI Reason not done Patient refused/unable BP 142/80 H Blood Pressure Location Lt brachial Position Sitting Pulse 76 Pulse Source Pulse Oximeter Temp 98.0 F Temp Source Oral Pulse Oximetry (%) 96 Oxygen Delivery Method Room Air Intake Visit Reasons: EP Chest pain, cough, congestion Intake Note: pt is here for cough, difficulty breathing, has a lung nodule that he is waiting to here if its cancer on the . patient denies chest pain, patients vitals are stable. Patient Tobacco Use Status: Former Tobacco user Allergies Surgical Tape Allergy (Unknown, Uncoded 07/17/25 10:48) rash, itching Do you need a note to return to daycare/school/sports/work: No HPI HPI Comments History of Present Illness Details This is a 65-year-old male who presented to the walk-in clinic complaining of shortness of breath, chest congestion, and cough x 1 day. Patient states his symptoms started yesterday afternoon. He has been feeling short of breath even at rest and with exertion. He reports sputum production but he is unsure what it looks like. He also reports some nasal congestion and rhinorrhea. He also feels wheezy. He reports chills but denies fevers. He reports he had a chest CT 3 weeks ago, which showed pulmonary nodule and he has a follow-up with a assistance representative in 10 days. [facility] Medical History Pneumonia HTN (hypertension) Obesity Back pain Surgical History H/O shoulder surgery History of submandibular gland removal Previous back surgery Social History Household Members: None Housing: Condominium Do you presently have visiting nurse or other home services: No Alcohol intake: current Alcohol intake frequency: does not drink Patient Tobacco Use Status: Former Tobacco user Substance Use Type: Marijuana service: No Review of Systems Const All systems reviewed & are unremarkable except as noted in HPI and below Reports no additional complaints Eyes Reports no additional complaints ENT Reports no additional complaints Card Reports no additional complaints Resp Reports no additional complaints GI Reports no additional complaints Reports no additional complaints Musc Reports no additional complaints Skin/Breast Reports system reviewed and no additional complaints, except as documented Neuro Reports no additional complaints Psych Reports no additional complaints Endo Reports no additional complaints Isac/Lymph Reports no additional complaints Aller/Immun Reports no additional complaints Physical Exam Exam Exam: Vital signs reviewed. Constitutional: Non-toxic appearing. No acute distress. Well-developed and well-nourished. HEENT: Normocephalic and atraumatic. PERRL/EOMI. Tympanic membranes without erythema, edema, or bulging bilaterally. External auditory canals without erythema or edema bilaterally. Moist mucous membranes. No pharyngeal erythema or exudates. Skin: Warm and dry. No rashes or lesions noted. Neck: Full and painless range of motion. No cervical lymphadenopathy. Cardio: Regular rate and rhythm. No murmurs, gallops, or rubs. No lower extremity edema. No JVD. Pulmonary: No respiratory distress. No accessory muscle usage. He has end expiratory wheezing throughout both lungs. Gastrointestinal: Soft, non-tender, and non-distended in all 4 quadrants. Musculoskeletal: Normal range of motion in joints throughout the body. No deformity or other signs of injury. Neuro: Alert and oriented x4. Cranial nerves 2-12 grossly intact. No focal defic its appreciated. Psych: Normal mood and affect. Vital Signs: Last Vital Signs Temp 98.0 F 07/17/25 10:48 Pulse 76 07/17/25 10:48 BP 142/80 H 07/17/25 10:48 Pulse Ox 96 07/17/25 10:48 Oxygen Delivery Method Room Air 07/17/25 10:48 Assessment & Plan Assessment & Plan (1) Acute bronchitis: Code(s): J20.9 - Acute bronchitis, unspecified Qualifiers: Bronchitis organism: unspecified organism Qualified Code(s): J20.9 - Acute bronchitis, unspecified Plan 65-year-old male who presented to the walk-in clinic complaining of shortness of breath, chest congestion, and cough x 1 day. On physical examination, patient has end expiratory wheezing throughout both lungs. History and physical most consistent with acute bronchitis, possibly viral versus bacterial. Ptient sent home on PO prednisone 40 mg daily x 5 days, PO azithromycin 500 mg x 1 followed by 250 mg daily x 4 days, and PO benzonatate 200 mg three times daily as needed for cough. PAtient advised to follow up here or proceed directly to the emergency room if he were to develop persistent or worsening symptoms such as fevers/chills, sputum production/purulence, or shortness of breath. Patient verbalized understanding and is agreeable with the plan. Medications: New prednisone take 4 tablets daily x 3 days followed by 3 tablets daily x3 days followed by 2 tablets daily x 3 days followed 1 tablet daily x 3 days 10 mg PO DIRECTED 30 tabs 0RF azithromycin For 250 mg dose pack: take 500 mg today (day 1), then 250 mg for 4 days (days 2-5) PO 6 tabs 0RF benzonatate 200 mg PO TID PRN 20 caps 0RF cough Coding Level of Care Code Est Pt Level 3 (77045) Diagnoses Acute bronchitis, unspecified organism J20.9 Bronchitis organism: unspecified organism
== END 2025-07-17 11:42 | disposition home or self-care (01) ==
PROVIDERS: PCP Internal Medicine; Visit Provider Physician Assistant Medical
DX: J20.9 Acute bronchitis, unspecified (principal)

== ENCOUNTER → 2025-07-17 10:09 | Outpatient (BNVA) | payer MEDICARE, SELFPAY | PROVIDERS: PCP Internal Medicine; Visit Provider Physician Assistant Medical | DX: J20.9 Acute bronchitis, unspecified (principal) | CPT/HCPCS: 99212 ==